=== PATIENT | female | born 1930 | race Caucasian/White ===

== ENCOUNTER 2017-08-10 10:36 | Inpatient (IN) | payer OTHER ==
[~2017-08-10] VITALS: Ht 149.9 cm; Wt 61.6 kg
[2017-08-10 10:45] VITALS: BP 151/64
--- NOTE | 2017-08-10 11:22 | NUR ---
pt was covered with warm blankets per request
[2017-08-10] MEDS ORDERED: LASIX 20 MG TAB20 MG PO (11:47)
[2017-08-10] MEDS ORDERED: NAMENDA 10 MG T10 MG PO (11:47)
[2017-08-10] MEDS ORDERED: SERTRALINE HCL50 MG PO (11:54)
[2017-08-10] MEDS ORDERED: LOPRESSOR25 PO (11:54)
[2017-08-10] MEDS ORDERED: FISH OIL 1,001000 M2 PO (11:54)
[2017-08-10] MEDS ORDERED: GABAPENTIN 100100 MG PO (11:55)
[2017-08-10] MEDS ORDERED: VITAMIN D250000 UNIT PO (11:55)
[2017-08-10 12:02] LABS: ABSOLUTE BASOPHILS 0.1 thou/uL (0.0-0.2); ABSOLUTE EOSINOPHILS 0.3 thou/uL (0.0-0.7); ABSOLUTE LYMPHOCYTES 1.5 thou/uL (0.8-5.3); ABSOLUTE MONOCYTES 0.5 thou/uL (0.0-1.2); ABSOLUTE NEUTROPHILS 5.7 thou/uL (1.6-8.1); BASOPHILS 1.2 %; EOSINOPHILS 4.1 %; HEMOGLOBIN 9.4 gm/dL (12.0-15.0); LYMPHOCYTES 18.3 %; MCH 29.7 pg (26.0-34.0); MCHC 31.2 g/dL (28.0-37.0); MCV 95.1 fL (80.0-100.0); MONOCYTES 6.4 %; MPV 7.3 fl. (7.2-11.1); NUCLEATED RBCS 0 /100WBC; PLATELET COUNT* 266 thou/uL (150-400); RBC 3.16 mil/uL (4.20-5.00); RDW-CV 17.6 % (10.5-14.5); WBC 8.2 thou/uL (4.0-11.0)
[2017-08-10 12:10] LABS: ANION GAP 9 mmol/L (7-16); BUN 33 mg/dL (7-18); CALCIUM 8.5 mg/dL (8.5-10.1); CHLORIDE 116 mmol/L (98-107); CO2 23 mmol/L (21-32); CREATININE 2.3 mg/dL (0.6-1.3); GLUCOSE 87 mg/dL (70-99); POTASSIUM 3.5 mmol/L (3.5-5.1); SODIUM 148 mmol/L (136-145)
[2017-08-10 12:21] LABS: ALBUMIN 2.4 g/dL (3.4-5.0); ALKALINE PHOSPHATASE 106 U/L (46-116); MAGNESIUM 1.9 mg/dL (1.8-2.4); NT-PRO BRAIN NAT PEPTIDE 10952 pg/mL (<300); SGOT 22 U/L (15-37); SGPT 10 U/L (30-65); TOTAL BILIRUBIN 0.3 mg/dL (<0.1-1.0); TOTAL PROTEIN 6.3 g/dL (6.4-8.2); TROPONIN-I LEVEL <0.06 ng/mL (<0.06)
[2017-08-10 12:24] LABS: BE -6.4 mmol/L (-2 to +3); HCO3 19.2 mmol/L (22.0-26.0); PCO2 38.8 mmHg (35.0-45.0); PO2 77.2 mmHg (75.0-100.0); pH 7.313 (7.340-7.450)
[2017-08-10 14:25] LABS: URINE BILIRUBIN NEGATIVE (Negative); URINE BLOOD TRACE (Negative); URINE CLARITY CLEAR; URINE COLOR YELLOW; URINE GLUCOSE-RANDOM NEGATIVE (Negative); URINE KETONES NEGATIVE (Negative); URINE LEUKOCYTES-REFLEX 1+ (Negative); URINE NITRITE-REFLEX POSITIVE (Negative); URINE PROTEIN 2+ (Negative); URINE SPECIFIC GRAVITY 1.025 (1.005-1.030); URINE UROBILINOGEN 0.2 E.U./dl (0.2-1.0)
[2017-08-10 14:30] LABS: SQUAMOUS 0-3 Few /LPF (0-3); WBC CLUMPS Few (None Seen)
[2017-08-10 14:31] LABS: BACTERIA-REFLEX 1-9 Few /HPF (None Seen); MUCUS None Seen strn/LPF (None Seen); URINE RBC 3-10 Few /HPF (0-2)
[2017-08-10 14:32] LABS: AMORPHOUS URATES Few /LPF (None Seen); HYALINE CASTS 0-3 Few /LPF (None Seen)
[2017-08-10 14:35] VITALS: BP 155/57
[2017-08-10 15:30] VITALS: BP 150/61
--- NOTE | 2017-08-10 17:35 | NUR ---
PT ARRIVED TO ROOM 218 AT 1435, ORIENTED TO ROOM AND STAFF. PT ALERT X3-4, FORGETFUL AT TIMES, SHE IS [place], HAS TROUBLE AMBLULATING, PT HAS HOME WALKER WITH HER. SHE STATES SHE JUST MOVED HERE FROM [place] WITH HER DTR AND CONOR. PT HAD A FALL LAST MONTH, BROKE HER LEFT ARM, AND WAS IN REHAB THERE. PT WAS NOT FEELING WELL THIS AM AND CAME TO THE ER. PT DENIES PAIN AT THIS TIME. VSS, A PACED ON THE MONITOR. PT IS WANTING TO TALK TO CM TOMORROW ABOUT GETTING SOME INSURANCE SET UP SINCE SHE JUST MOVED HERE AND ALSO WANTS DPOA AND ADVANCED DIRECTIVE. PTS DAUTHER AND CONOR AT BEDSIDE. FALL PRECAUTIONS IN PLACE. WILL CONTINUE WITH PLAN OF CARE.
--- NOTE | 2017-08-10 18:20 | EKG ---
[place] [address] ELECTROCARDIOGRAM REPORT Name: SPARKSETIENNE Room: [address] [place] [facility] [id number] Admission: 08/10/17 Attend Phys: Adela Parish MD Discharge: Date of : 34 Report #: [id number] THIS REPORT FOR: //name// [facility] ED Test Date: 2017-08-10 Test Time: 10:49:31 Pat Name: ETIENNE SPARKS Department: Room: Gender: Insurance Executive: Evy MCCALLUM : 1930 Requested By: Dania Alvarez Order Number: [id number] MD: Costa Alcantar Measurements Intervals [place] Rate: 60 P: 177 VA: 182 QRS: 4 QRSD: 111 T: 41 QT: 463 QTc: 463 Interpretive Statements Atrial-paced complexes No previous ECG available for comparison Electronically Signed On 08-10-2017 18:19:52 CDT by Costa Alcantar [email or web address] <ELECTRONICALLY SIGNED> By: Costa Alcantar MD, [facility] 08/10/17 1819 D: 059 1049 Costa Alcantar MD, FACC /EPI
[2017-08-10 20:15] VITALS: BP 161/54
[2017-08-11] VITALS: BP 149/46
[2017-08-11 04:00] VITALS: BP 136/45
[2017-08-11 04:31] LABS: HEMATOCRIT 25.8 % (37.0-47.0); HEMOGLOBIN 8.3 gm/dL (12.0-15.0); MCH 30.1 pg (26.0-34.0); MCHC 32.2 g/dL (28.0-37.0); MCV 93.5 fL (80.0-100.0); MPV 7.4 fl. (7.2-11.1); RBC 2.76 mil/uL (4.20-5.00); WBC 7.4 thou/uL (4.0-11.0)
[2017-08-11 04:33] LABS: CREATININE 2.1 mg/dL (0.6-1.3); MAGNESIUM 1.6 mg/dL (1.8-2.4); POTASSIUM 3.1 mmol/L (3.5-5.1)
--- NOTE | 2017-08-11 05:04 | NUR ---
ASSUMED CARE AROUND 1930. PT A/OX4 AND VERY PLEASANT. TELE MONITOR TRACING SR-PACER. ON ROOM AIR. IVF INFUSING ORDERED. VOIDING AND HAVING LOOSE BM'S VIA BEDPAN. PT REPORTED INTERMITTENT LEFT SHOULDER PAIN WITH MOVEMENT, REFUSED ANY PAIN MEDS THIS SHIFT. VSS. SEE CHARTING. CALL LIGHT IN REACH, BEDALARM IN PLACE. WILL CONTINUE WITH PLAN OF CARE.
[2017-08-11 07:45] VITALS: BP 146/72
--- NOTE | 2017-08-11 13:30 | NUR ---
Pt is A&O. Resides at home with her dtr, CONOR and granddaughter. They recently moved here from [place]. Hx of SNF in [place]. Pt uses a walker for mobility. Dtr completes ADLs. Pt is independent with IADLS. Renal and cardiology following. Pt's goal is to return home once medically stable. CM following for disposition.
--- NOTE | 2017-08-11 14:12 | 2DMMODE ---
[place] [address] 2 D/M-MODE ECHOCARDIOGRAM Name: ETIENNE SPARKS Room: [address] IN [facility]#: [id number] Admission: 08/10/17 Attend Phys: Adela Parish, Discharge: Date of : 32 Date of Service: 08/11/17 1411 Report #: [id number] THIS REPORT FOR: //name// APPROVED REPORT Study performed: 08/11/2017 10:52:47 EXAM: Comprehensive 2D, Doppler, and color-flow Echocardiogram Patient Location: In-Patient Room #: 218 Status: routine BSA: 1.65 HR: 60 bpm BP: 146/72 mmHg Rhythm: NSR Other Information Study Quality: Good Indications Congestive Heart Failure 2D Dimensions LVEF(%): 55.07 (>50%) IVSd: 13.00 (7-11mm) LVOT Diam: 18.20 (18-24mm) LVDd: 25.64 mm PWd: 11.15 (7-11mm) Ascending Ao: 32.08 (22-36mm) LVDs: 18.67 (25-40mm) Aortic Root: 29.55 mm Vincent's LVEF: 55.07 % Volumes Left Atrial Volume (Systole) LA ESV Index: 49.40 mL/m2 Aortic Valve AoV Peak Ronal.: 1.41 m/s AO Peak Gr.: 7.90 mmHg LVOT Max P.89 mmHg AO Mean Gr.: 4.55 mmHg LVOT Mean P.85 mmHg LVOT Max V: 0.99 m/s AO V2 VTI: 30.11 cm LVOT Mean V: 0.62 m/s EARL (VTI): 2.31 cm2 LVOT V1 VTI: 26.78 cm Mitral Valve E/A Ratio: 1.94 [place] [address] 2 D/M-MODE ECHOCARDIOGRAM Name: ETIENNE SPARKS Room: [address] IN ..#: [id number] Admission: 08/10/17 Attend Phys: Adela Parish, Discharge: Date of : 32 Date of Service: 08/11/17 1411 Report #: [id number] MV Decel. Time: 229.99 ms MV E Max Ronal.: 0.83 m/s MV PHT: 66.70 ms MVA (PHT): 3.30 cm2 TDI E/Lateral E': 8.30 E/Medial E': 9.22 Medial E' Ronal.: 0.09 m/s Lateral E' Ronal.: 0.10 m/s Pulmonary Valve PV Peak Ronal.: 0.83 m/s PV Peak Gr.: 2.74 mmHg Tricuspid Valve TR Peak Gr.: 36.36 mmHg RVSP: 41.00 mmHg Left Ventricle The left ventricle is normal size. There is normal LV segmental wall motion. There is normal left ventricular wall thickness. Left ventricular systolic function is normal. The left ventricular ejection fraction is within the normal range. LVEF is 60-65%. The left ventricular diastolic function is normal. Right Ventricle The right ventricle is normal size. The right ventricular systolic function is normal. Pacemaker lead is present in the right ventricle. Atria Left atrium is severely dilated. The right atrium size is normal. Aortic Valve Mild aortic valve sclerosis. No aortic regurgitation is present. There is no aortic valvular stenosis. Mitral Valve The mitral valve is normal in structure. Mild mitral regurgitation. No evidence of mitral valve stenosis. Tricuspid Valve The tricuspid valve is normal in structure. Mild tricuspid regurgitation. The RVSP is 45-50 mmHg. Pulmonic Valve The pulmonary valve is normal in structure. [place] [address] 2 D/M-MODE ECHOCARDIOGRAM Name: CYNDEE SPARKSHELEN Caromna Room: [address] IN .R.#: [id number] Admission: 08/10/17 Attend Phys: Adela Parish, Discharge: Date of : 32 Date of Service: 08/11/17 1411 Report #: [id number] Great Vessels The aortic root is normal in size. IVC is normal in size and collapses with >50% inspiration Pericardium There is no pericardial effusion. Left pleural effusion. <Conclusion> LVEF is 60-65%. Left atrium is severely dilated. Mild aortic valve sclerosis. Mild mitral regurgitation. Mild tricuspid regurgitation. The RVSP is 45-50 mmHg. <ELECTRONICALLY SIGNED> By: Costa Alcantar MD, [facility] 08/11/17 141 10 10 Costa Alcantar MD, FACC /INF
[2017-08-11 16:21] VITALS: BP 157/51
[2017-08-11 20:00] VITALS: BP 146/56
[2017-08-12] VITALS: BP 133/68
[2017-08-12 04:00] VITALS: BP 141/54
[2017-08-12 04:51] LABS: HEMATOCRIT 25.3 % (37.0-47.0); MCH 29.8 pg (26.0-34.0); MCHC 31.8 g/dL (28.0-37.0); MCV 93.8 fL (80.0-100.0); MPV 7.7 fl. (7.2-11.1); RBC 2.69 mil/uL (4.20-5.00); RDW-CV 18.6 % (10.5-14.5); WBC 7.6 thou/uL (4.0-11.0)
[2017-08-12 05:13] LABS: CREATININE 2.2 mg/dL (0.6-1.3); MAGNESIUM 1.7 mg/dL (1.8-2.4); POTASSIUM 3.9 mmol/L (3.5-5.1)
--- NOTE | 2017-08-12 05:56 | NUR ---
ASSUMED PT CARE AT 19;15 REPORT RECEIVED FROM NURSE. PT IS ALERT AWWAKE ORIENTED X4. NO COMPLAINT AT [facility]. SINUS RYTHM V PACED PN THE MONITOR. RECEIVING ANTIBIOTICS ON SCHEDULE. ASSSEESSMENT PERFORMED. PT HELPED TO GO TO RESTROOM CHRISTINE BED WITH ASSISTANCE. IV LINE IS PATENT, ASSESSMETN PERFORMED. PT TOLORATED WELL. REFER TO CHART. LIGHT DIMMED, ROOM QUIET TO PROMOTE SLEEP. WILL CONTINUE TO MOMITOR.
[2017-08-12 08:30] VITALS: BP 139/39
--- NOTE | 2017-08-12 10:57 | NUR ---
ASSUMED CARE OF PATIENT AFTER REPORT THIS MORNING. PATIENT AWAKE, ALERT, AND ORIENTED APPROPRIATELY. PHYSICAL ASSESSMENT COMPLETED AND CHARTED. NO COMPLAINTS OF PAIN. HYPOTENSIVE. OTHER VITAL SIGNS STABLE. OXYGEN SATURATION WITHIN NORMAL LIMITS ON ROOM AIR. GIVEN SCHEDULED MEDICATIONS, HELD METOPROLOL D/T HYPOTENSION, SEE EMAR FOR DOCUMENTATION. PATIENT TRANSFERS AND AMBULATES WITH ASSISTANCE FROM STAFF. USES CALL LIGHT APPROPRIATELY. DENIES NEEDS AT THIS TIME. CALL LIGHT WITHIN REACH. NURSING WILL CONTINUE TO MONITOR.
[2017-08-12 11:48] VITALS: BP 146/71
--- NOTE | 2017-08-12 13:45 | NUR ---
Spoke with Pt's dtr, Pt currently has [employer] and wants to switch to [place] Medicaid. Faxed facesheet to Radha at [facility]. Completed DPOA of , appointing Pt's dtr, Rosibel, and Davi PERDOMO.
[2017-08-12 16:10] VITALS: BP 167/61
--- NOTE | 2017-08-12 17:28 | NUR ---
PATIENT REMAINS ALERT AND ORIENTED APPROPRIATELY, FORGETFUL AT TIMES. IV FLUIDS TRANSFUSING AT ORDERED RATE. GIVEN SCHEDULED MEDICATIONS THIS SHIFT, SEE EMAR FOR DOCUMENTATION. DENIES NEEDS. CALL LIGHT IN REACH. NURSING WILL CONTINUE TO MONITOR.
[2017-08-12 20:00] VITALS: BP 142/48
[2017-08-13 00:11] VITALS: BP 132/35
--- NOTE | 2017-08-13 04:06 | NUR ---
ASSUMED CARE OF PT AT 1915. NURSING ASSESSMENT COMPLETED AT START OF SHIFT. PT VOICED NO CONCERNS THIS SHIFT. PT ON IRRIGATION SERVICE TECHNICIAN TRACING SINUS RHYTHM THIS SHIFT WITH HR IN 60'S. FALL PRECAUTIONS IN PLACE, CALL LIGHT WITHIN REACH. NO FALLS THIS SHIFT. HOURLY ROUNDING COMPLETED. PT SLOWLY PROGRESSING TOWARDS GOALS.
[2017-08-13 04:14] VITALS: BP 124/38
[2017-08-13 08:00] VITALS: BP 145/51
[2017-08-13 12:00] VITALS: BP 151/59
--- NOTE | 2017-08-13 13:28 | NUR ---
VSS, ASSUMED CARE IN THE AM, ASSESSMENT PERFORMED AND CHARTED, FALL PRECAUTIONS IN PLACE AND CALL LIGHT IN REACH, PT IS A&O4 UP WITH ONE AND WALKER, PT IS ON RA AND IS TRCAING SR ON THE MONITOR, PT DENIES ANY PAIN AND HER GOAL IS TO SIT UP IN CHAIR AND WORK WITH PT/OT, WILL FOLLOW WITH PLAN OF CARE,
[2017-08-13 14:07] LABS: IgA 232 mg/dL (64-422); IgG 880 mg/dL (700-1600); IgM 120 mg/dL (26-217)
[2017-08-13 16:00] VITALS: BP 136/53
--- NOTE | 2017-08-13 18:26 | NUR ---
PT IS PROGRESSING TOWARDS GOAL, PT WALKED THE UNIT AND HAS BEEN UP IN CHAIR FOR ALL MEALS, HER BREATHING HAS IMPROVED AND AT THIS TIME NO OTHER STATUS CHANGED NOTED AT THIS TIME, HOURLY ROUNDS COMPLETED, PT HAS PACEMAKER AND IS A PACED AT TIMES,
[2017-08-13 20:00] VITALS: BP 180/57
[2017-08-14 00:15] VITALS: BP 164/52
[2017-08-14 04:06] VITALS: BP 139/41
--- NOTE | 2017-08-14 04:36 | NUR ---
ASSUMED PT CARE AT 1930, NURSING ASSESSMENT COMPLETED AT START OF SHIFT. HOURLY ROUNDING COMPLETED, VOICED NO CONCERNS THIS SHIFT. PT TRACING ATRIAL PACED ON WORKFORCE ADVISOR WITH HR OF 60. CALL LIGHT WITHIN REACH. FALL PRECAUTIONS IN PLACE.
[2017-08-14 05:17] LABS: HEMATOCRIT 26.3 % (37.0-47.0); HEMOGLOBIN 8.3 gm/dL (12.0-15.0)
[2017-08-14 05:38] LABS: ALBUMIN 1.9 g/dL (3.4-5.0); CALCIUM 8.1 mg/dL (8.5-10.1); CREATININE 2.1 mg/dL (0.6-1.3); POTASSIUM 3.5 mmol/L (3.5-5.1); TOTAL BILIRUBIN 0.3 mg/dL (<0.1-1.0); TOTAL PROTEIN 4.9 g/dL (6.4-8.2)
[2017-08-14 07:00] VITALS: BP 145/41
[2017-08-14 09:47] VITALS: BP 145/41
[2017-08-14] MEDS ORDERED: KEFLEX500 M1 PO (11:26)
--- NOTE | 2017-08-14 13:22 | NUR ---
VSS, ASSUMED CARE IN THE AM, ASSESSMENT PERFORMED AND CHARTED, FALL PRECAUTIONS IN PLACE AND CALL LIGHT IN REACH, PT IS UP WITH ONE AND WALKER, ON RA IS A&O4 AND TRACING A-PACED OR SR ON THE MONITOR, PT WILL D/C TO HOME ON DAY OF CARE. AT THIS TIME I HAVE RECIEVED D/C INSTRUCTIONS FILLED OUT MEDICATION SHEET AND PROVITED MEDICATION INFO SHEET AND SCRIPTED, PROVITED D/C INSTRUCTIONS IV AND TELE MONITOR TAKEN OFF AND PT WAS TAKEN OUT VIA WHEEL CHAIR WITH FAMILY TO CAR BY STAFF, HOURLY ROUNDS COMPLETED AND PT DENIES ANY QUESTIONS OR CONCERNS ATIME OF D/C
[2017-08-15 12:09] LABS: KAPPA FREE LIGHT CHAINS 81.2 mg/L (3.3-19.4); LAMBDA FREE LIGHT CHAINS 84.4 mg/L (5.7-26.3)
--- NOTE | 2017-08-17 12:21 | CON ---
[address] [address] CONSULTATION Name: ETIENNE SPARKS Mathew Room: [address] IN ..#: [id number] Admission: 08/10/17 Attend Phys: Adela Parish MD Discharge: 08/14/17 Date of : 32 Report #: [id number] THIS REPORT FOR: //name// CC: TEODORO Parish Physician staff DATE OF SERVICE: 08/11/2017 REQUESTING PHYSICIAN: Dr. Parish. REASON FOR CONSULTATION: Chronic kidney disease stage 4. HISTORY OF PRESENT ILLNESS: The patient is an 86-year-old lady with past medical history significant for liver cirrhosis, history of congestive heart failure, chronic kidney disease, stage IV. She was admitted with a diagnosis of not feeling well, having some shortness of breath and admitting diagnosis were pneumonia, CHF. The patient's family moved here from [place] several days ago. PAST MEDICAL HISTORY: As mentioned earlier with a baseline of creatinine around 2.1-2.2 with a GFR in the 20s. I do not have records on her left ventricular ejection fraction. 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 SOCIAL HISTORY: She never smoked. Lives with family. FAMILY HISTORY: Noncontributory. MEDICATIONS: Prior to admission included furosemide 20 mg a day, Namenda 10 mg a day, fish oil, Zoloft, Lopressor 25 mg twice a day, gabapentin 100 mg 3 times a day and vitamin D. REVIEW OF SYSTEMS: Positive for weakness as I mentioned earlier and some shortness of breath. The rest of the system reviewed are negative. PHYSICAL EXAMINATION: GENERAL: Awake, alert, oriented, chronically ill-looking lady. VITAL SIGNS: Blood pressure 146/72, heart rate 60, afebrile. HEENT: Pupils are round. NECK: Supple. LUNGS: Decreased air movements both bases, more on the left. CARDIOVASCULAR: Regular rate. ABDOMEN: Soft. Liver is palpable about 6 cm below the right costal margin. LOWER EXTREMITIES: [place] [address] CONSULTATION Name: ETIENNE SPARKS Mathew Room: [address]#: [id number] Admission: 08/10/17 Attend Phys: Adela Parish MD Discharge: 08/14/17 Date of : 32 Report #: [id number] LABORATORY DATA: Report revealed serum sodium of 150, potassium 3.1, chloride 119, carbon dioxide 21, BUN 29, creatinine 2.1, magnesium 1.6. Hemoglobin is 8.3, white count 7.4. Her chest CT scan revealed the presence of left moderate amount of pleural effusion and some pleural effusion on the right as well, and left kidney mass, most likely cyst, small right kidney stone and lobulated liver consistent with diagnosis of cirrhosis. ASSESSMENT: 1. Chronic kidney disease stage 4. I have reviewed her labs from [place] and a creatinine around 2.2 is her baseline. Etiology of chronic kidney disease, unclear, probably due to hypertension. 2. 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 3. History of recent pneumonia. 4. History of congestive heart failure with pleural effusion. 5. Hypernatremia. 6. Hyperkalemia. The patient is going to have renal ultrasound done today. She is receiving antibiotics for diagnosis of pneumonia. Cardiology is on the case to take care of congestive heart failure. I will await reports on the echocardiogram. We will follow on her serial labs. Discussed case with her daughter. Thank you very much for asking my opinion on chronic kidney disease. <ELECTRONICALLY SIGNED> By: Abraham Gudino MD 08/17/17 1221 1014 [id number] Gudino MD /nt
== END 2017-08-14 13:33 | disposition home or self-care (01) | DRG 177 ==
LOC: M.ERS 10:36 → M.TBA-ER 14:07 → M.2W 14:07
PROVIDERS: Internal Medicine; Internal Medicine Cardiovascular Disease; Internal Medicine Nephrology; Personal Emergency Response Attendant; ADMIT Internal Medicine
DX: J69.0 Pneumonitis due to inhalation of food and vomit (principal); I50.33 Acute on chronic diastolic (congestive) heart failure; E43 Unspecified severe protein-calorie malnutrition; N17.9 Acute kidney failure, unspecified; I13.0 Hypertensive heart and chronic kidney disease with heart failure and stage 1 through stage 4 chronic kidney disease, or unspecified chronic kidney disease; E87.0 Hyperosmolality and hypernatremia; N39.0 Urinary tract infection, site not specified; N18.4 Chronic kidney disease, stage 4 (severe); K74.60 Unspecified cirrhosis of liver; E87.5 Hyperkalemia; Y95 Nosocomial condition; E87.6 Hypokalemia; M81.0 Age-related osteoporosis without current pathological fracture; F32.9 Major depressive disorder, single episode, unspecified; B96.89 Other specified bacterial agents as the cause of diseases classified elsewhere; H35.30 Unspecified macular degeneration; I49.5 Sick sinus syndrome; D64.9 Anemia, unspecified; Z96.641 Presence of right artificial hip joint; H91.90 Unspecified hearing loss, unspecified ear; E21.3 Hyperparathyroidism, unspecified; Z95.0 Presence of cardiac pacemaker; Z98.84 Bariatric surgery status; Z87.81 Personal history of (healed) traumatic fracture; Z86.718 Personal history of other venous thrombosis and embolism; Z79.899 Other long term (current) drug therapy; Z88.6 Allergy status to analgesic agent; Z91.041 Radiographic dye allergy status; Z91.013 Allergy to seafood; Z88.8 Allergy status to other drugs, medicaments and biological substances; Z91.018 Allergy to other foods; Z91.048 Other nonmedicinal substance allergy status

== ENCOUNTER 2017-08-16 10:40 | Inpatient (IN) | payer OTHER ==
[~2017-08-16] VITALS: Ht 149.9 cm; Wt 80.7 kg
--- NOTE | ~2017-08-16 | PROC ---
[address] [address] PROCEDURE REPORT Name: ETIENNE SPARKS Room: [address] IN .R.#: [id number] Admission: 08/16/17 Attend Phys: Bassam Noe MD Discharge: Date of : 32 Report #: [id number] THIS REPORT FOR: //name// For GI report, Please see the Provation report in Perceptive 7 content. By: [id number] Records Staff BELL /ROSEMARIE
[~2017-08-16 10:40] MED LIST: FISH OIL 1,001000 M2 PO; GABAPENTIN 100100 MG PO; KEFLEX500 M1 PO; LASIX 20 MG TAB20 MG PO; LOPRESSOR25 PO; NAMENDA 10 MG T10 MG PO; SERTRALINE HCL50 MG PO; VITAMIN D250000 UNIT PO
[2017-08-16 10:48] VITALS: BP 177/75
[2017-08-16 11:34] LABS: HEMATOCRIT 30.8 % (37.0-47.0); HEMOGLOBIN 9.6 gm/dL (12.0-15.0); MCH 29.7 pg (26.0-34.0); MCHC 31.3 g/dL (28.0-37.0); MCV 94.9 fL (80.0-100.0); MPV 7.7 fl. (7.2-11.1); NUCLEATED RBCS 0 /100WBC; PLATELET COUNT* 170 thou/uL (150-400); RBC 3.24 mil/uL (4.20-5.00); RDW-CV 18.7 % (10.5-14.5); WBC 12.5 thou/uL (4.0-11.0)
[2017-08-16 11:41] LABS: ANION GAP 10 mmol/L (7-16); BUN 19 mg/dL (7-18); CALCIUM 9.1 mg/dL (8.5-10.1); CHLORIDE 116 mmol/L (98-107); CO2 21 mmol/L (21-32); CREATININE 1.9 mg/dL (0.6-1.3); GLUCOSE 100 mg/dL (70-99); POTASSIUM 3.6 mmol/L (3.5-5.1); SODIUM 147 mmol/L (136-145)
[2017-08-16 11:52] LABS: ALBUMIN 2.4 g/dL (3.4-5.0); ALKALINE PHOSPHATASE 96 U/L (46-116); MAGNESIUM 1.9 mg/dL (1.8-2.4); NT-PRO BRAIN NAT PEPTIDE 10150 pg/mL (<300); SGOT 17 U/L (15-37); SGPT 9 U/L (30-65); TOTAL BILIRUBIN 0.4 mg/dL (<0.1-1.0); TOTAL PROTEIN 6.1 g/dL (6.4-8.2); TROPONIN-I LEVEL <0.06 ng/mL (<0.06)
[2017-08-16 12:20] LABS: ABSOLUTE LYMPHOCYTES 0.6 thou/uL (0.8-5.3); ABSOLUTE MONOCYTES 0.4 thou/uL (0.0-1.2); ABSOLUTE NEUTROPHILS 11.5 thou/uL (1.6-8.1)
[2017-08-16 12:21] LABS: ANISOCYTOSIS 1+; HYPOCHROMASIA Occasional; MICROCYTES Occasional; PLATELET ESTIMATE ADEQUATE; POLYCHROMASIA Occasional
[2017-08-16 12:32] LABS: HCO3 18.1 mmol/L (22.0-26.0); PCO2 43.9 mmHg (35.0-45.0); PO2 147.4 mmHg (75.0-100.0); pH 7.233 (7.340-7.450)
[2017-08-16 13:22] VITALS: BP 155/74
[2017-08-16 13:40] VITALS: BP 179/62
[2017-08-16 14:18] LABS: INR 1.2; PROTIME 11.4 Seconds (9.20-11.50)
[2017-08-16 16:30] VITALS: BP 148/49
[2017-08-16 16:44] LABS: BF RBC <1000 /mm3; TOTAL CELL COUNT 131 /mm3
[2017-08-16 16:48] LABS: TOTAL VOLUME 1200 ml
[2017-08-16 16:49] LABS: CLARITY CLEAR; COLOR YELLOW
[2017-08-16 16:56] LABS: BF LYMPHOCYTES 67 %; BF MONOCYTES 20 %; BF POLYS 13 %; SOURCE THORACENTESIS
--- NOTE | 2017-08-16 17:17 | EKG ---
[place] [address] ELECTROCARDIOGRAM REPORT Name: SPARKSETIENNE Room: [address] IN [facility]#: [id number] Admission: 08/16/17 Attend Phys: Bassam Noe MD Discharge: Date of : 32 Report #: [id number] THIS REPORT FOR: //name// [facility] ED Test Date: 2017-08-16 Test Time: 11:51:22 Pat Name: ETIENNE PSARKS Department: Room: Gender: Alteration Specialist: Evy WILLIAMSON : 1930 Requested By: Dania Alvarez Order Number: [id number] MD: Costa Alcantar Measurements Intervals Early Rate: 72 P: 6 CO: 52 QRS: 7 QRSD: 100 T: 45 QT: 411 QTc: 450 Interpretive Statements Atrial-paced complexes with sinus rhythm Low voltage, extremity and precordial leads Compared to ECG 08/10/2017 10:49:31 Low QRS voltage now present Electronically Signed On 08-16-2017 17:16:57 CDT by Costa Alcantar [email or web address] <ELECTRONICALLY SIGNED> By: Costa Alcantar MD, [facility] 08/16/17 1716 1151 1151 Costa Alcantar MD, [facility] /EPI
--- NOTE | 2017-08-16 18:35 | NUR ---
PT ADMITTED TO ROOM 214 VIA CART FROM ED AT APPROXIMATELY 1340 WITH CHF. REPORT RECEIVED FROM NINO RESTREPO. PT ORIENTED TO ROOM AND CALL LIGHT. ADMISSION ASSESSMENT AND HISTORY COMPLETED. REFER TO CHARTING. SEPSIS SCREENING COMPLETED- PT SCREENED NEGATIVE. HOME MEDICATIONS RECONCILED AND RESTARTED-REFER TO EMAR. PT A&0X4 AT BEGINNING OF SHIFT. PT BEGAN TO GET CONFUSED THROUGHOUT SHIFT AND FORGETFUL. DAUGHTER AT BEDSIDE. PT TRACING A-PACED ON THE FISH CONSERVATIONIST. PT ON 2L NC SAT UPPER 90'S. CRACKLES NOTED. PT DOES NOT WEAR OXYEN AT HOME. PT LIVES AT HOME WITH DAUGHTER-DAUGHTER CARES FOR PT 18/10. PT UP WITH 1 ASSIST BSC, UNSTEADY AND WEAK. PT HAD BOWEL MOVEMENT TODAY. URINALYSIS NEEDS TO BE OBTAINED. AWAITING RESULTS AT THIS TIME. PT HAD RECENT LEFT SHOULDER FRACTURE AND WAS GETTING READY TO START PHYSICAL THERAPY ON IT. BNP ELEVATED AT 10,150. EDEMA NOTED TO BILATERAL LE'S. 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 PT DENIES ANY PAIN AT THIS TIME. PULMONARY CONSULT IN PLACE FOR RECURRENT INFILTRATES. PT HAD VQ LUNG SCAN TODAY SHOWING LOW PROBABILITY FOR PE. - REFER TO RESULTS. 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 DR PEREZ NOTIFIED. NO NEW ORDERS RECEIVED AT THIS TIME. PT HAD THORACENTESIS TO LEFT LUNG TODAY. FLUID OBTAINED AND SENT FOR ANALYSIS. WILL CONTINUE TO MONITOR CLOSELY. MEDICATIONS PER MAY. PT REPOSITIONED EVERY 2 HOURS FOR COMFORT. HOURLY ROUNDING OBSERVED. BED IN LOW POSITION. BED ALARM IN PLACE. FALL PRECAUTIONS IN PLACE. CALL LIGHT WITHIN REACH. WILL CONTINUE PLAN OF CARE.
[2017-08-16 20:00] VITALS: BP 170/59
[2017-08-16 23:52] VITALS: BP 145/54
[2017-08-17 03:58] VITALS: BP 113/24
--- NOTE | 2017-08-17 04:23 | NUR ---
PT ALERT ORIENTED. BREATH SOUNDS DIM COURSE. O2 AT 2 LITERS NC. TELEMETRY SHOWS SR WITH INTERMITTENT A PACED. WILL CONTINUE TO MONITOR.
[2017-08-17 04:56] LABS: ABSOLUTE BASOPHILS 0.1 thou/uL (0.0-0.2); ABSOLUTE LYMPHOCYTES 1.3 thou/uL (0.8-5.3); ABSOLUTE MONOCYTES 0.6 thou/uL (0.0-1.2); ABSOLUTE NEUTROPHILS 13.2 thou/uL (1.6-8.1); BASOPHILS 0.5 %; EOSINOPHILS 0.2 %; HEMATOCRIT 29.8 % (37.0-47.0); LYMPHOCYTES 8.8 %; MCH 29.4 pg (26.0-34.0); MCHC 30.3 g/dL (28.0-37.0); MCV 97.2 fL (80.0-100.0); MPV 7.8 fl. (7.2-11.1); NUCLEATED RBCS 0 /100WBC; PLATELET COUNT* 141 thou/uL (150-400); POLYS 86.5 %; RBC 3.07 mil/uL (4.20-5.00); RDW-CV 19.8 % (10.5-14.5); WBC 15.3 thou/uL (4.0-11.0)
[2017-08-17 05:21] LABS: CALCIUM 8.3 mg/dL (8.5-10.1); CREATININE 2.1 mg/dL (0.6-1.3); POTASSIUM 3.7 mmol/L (3.5-5.1)
[2017-08-17 08:00] VITALS: BP 117/41
[2017-08-17 12:24] VITALS: BP 138/50
--- NOTE | 2017-08-17 12:32 | NUR ---
Pt known to this CM from hospital stay last week. Pt resides at home with her dtr and CONOR, family recently moved here from [place]. Pt discharged on 08/14 to home, Pt readmitted yesterday with [facility] CHF. Hx of Snf in [place]. No hx of HH. Pt has a walker, wc and hospital bed at home. Dtr completes all ADLs. Pt had been independent with iadls. Pt could benefit from some HH [place], family in agreement. Goal is home. Following.
[2017-08-17 14:09] LABS: BODY FLUID AMYLASE 35 U/L (()); BODY FLUID LDH 49 IU/L (()); BODY FLUID PROTEIN 1.2 g/dL (())
--- NOTE | 2017-08-17 14:33 | NUR ---
ASSUMED CARE OF PT AT 0730. PT RESTING IN BED. PT A&0X4, FORGETFUL AT TIMES. PT TRACING APACED ON THE ORGAN PIPE FINISHER. ON 3L NC SAT 98%. COARSE CRACKLES NOTED. BLOOD CULTURE RESULTS BACK WITH GRAM POSITIVE COCCI. DR PREEZ NOTIFIED. ORDERS RECEIVED FOR ID CONSULT AND TO START VANCOMYCIN. REFER TO EMAR. PT IN CONTACT ISOLATION FOR ESBL IN URINE. MRSA NASAL SWAB SENT TO LAB. AWAITING RESULTS AT THIS TIME. PT UP WITH 1 ASSIST TO BSC. PT TO WORK WITH PHYSICAL AND OCCUPATIONAL THERAPY TODAY. PT NPO EXCEPT MEDS UNTIL RECEIVES SWALLOW STUDY. PULMONARY HERE TO SEE PT AND ORDERS RECEIVED FOR IV SOLUMEDROL AND CT CHEST. REFER TO EMAR. DAUGHTER, MAMIE CALLED AND UPDATED WITH CURRENT CARE PLAN. PT GOAL FOR TODAY IS TO MONITOR RESPIRATORY STATUS AND NEPHROLOGY CONSULT. AM ASSESSMENT CHARTED. MEDICATIONS PER MAY. PT REPOSITIONED EVERY 2 HOURS FOR COMFORT. HOURLY ROUNDING OBSERVED. BED IN LOW POSITION. BED ALARM IN PLACE. FALL PRECAUTIONS IN PLACE. CALL LIGHT WITHIN REACH. WILL CONTINUE PLAN OF CARE.
[2017-08-17 15:16] LABS: SOURCE THORACENTESIS
[2017-08-17 15:17] LABS: SOURCE THORACENTESIS
[2017-08-17 15:52] VITALS: BP 121/58
[2017-08-17 17:09] LABS: BODY FLUID PH 7.6 (Not Estab.)
--- NOTE | 2017-08-17 17:56 | 2DMMODE ---
[address] [place] [address] 2 D/M-MODE ECHOCARDIOGRAM Name: ETIENNE SPARKS Mathew Room: [address] IN [facility]#: [id number] Admission: 08/16/17 Attend Phys: Bassam Noe, Discharge: Date of : 34 Date of Service: 08/17/17 1756 Report #: [id number] THIS REPORT FOR: //name// APPROVED REPORT Study performed: 08/17/2017 15:41:37 EXAM: Limited 2D Echocardiogram Patient Location: In-Patient Room #: 214 Status: routine BSA: 1.58 HR: 60 bpm BP: 138/50 mmHg Rhythm: NSR Other Information Study Quality: Good Indications Congestive Heart Failure Sepsis Dyspnea Pacemaker Left Ventricle The left ventricle is normal size. There is normal LV segmental wall motion. There is normal left ventricular wall thickness. The left ventricular systolic function is normal. The left ventricular ejection fraction is within the normal range. LVEF is 55-60%. Right Ventricle The right ventricle is normal size. The right ventricular systolic function is normal. Atria Left atrium is moderate to severely dilated. Aortic Valve Mild aortic valve sclerosis. Mitral Valve Mild mitral annular calcification. Tricuspid Valve The tricuspid valve is normal in structure. [facility] [address] [place] [address] 2 D/M-MODE ECHOCARDIOGRAM Name: ETIENNE SPARKS Room: [address] IN M.R.#: [id number] Admission: 08/16/17 Attend Phys: Bassam Noe, Discharge: Date of : 32 Date of Service: 08/17/171755 Report #: [id number] Pulmonic Valve The pulmonary valve is normal in structure. Great Vessels The aortic root is normal in size. IVC is normal in size and collapses >50% with inspiration. Pericardium Left pleural effusion with mass effect suggested <Conclusion> Normal left ventricular cavitary size There is normal left ventricular wall thickness. The left ventricular systolic function is normal. The left ventricular ejection fraction is within the normal range. LVEF is 55-60%. The right ventricle is normal size. Left atrium is moderate to severely dilated. Mild aortic valve sclerosis. Mild mitral annular calcification. There is normal LV segmental wall motion. Left pleural effusion with mass effect suggested <ELECTRONICALLY SIGNED> By: Tyler Smith MD, FACC 08/17/171755 55 55 Tyler Smith MD, FACC /INF
--- NOTE | 2017-08-17 18:02 | NUR ---
NO ACUTE CHANGES THROUGHOUT SHIFT. REFER TO CHARTING. SPUTUM CULTURE OBTAINED AND SENT TO LAB. AWAITING RESULTS AT THIS TIME. MRSA SWAB PENDING WELL. SPEECH THERAPY COMPLETED A BEDSIDE EVALUATION AND PLACED PT ON PUREED DIET WITH HONEY THICKENED LIQUIDS. PT TO HAVE VIDEO SWALLOW COMPLETED TOMORROW 08/18. URINALYSIS NEEDS TO BE OBTAINED. CT CHEST ORDERED PER PULMONARY. REFER TO RESULTS. ORDERS RECEIVED FROM DR FAY FOR THORACENTESIS ON THE RIGHT SIDE WITH CYTOLOGY ORDERS. PT TO HAVE THORACENTESIS TOMORROW 08/18. PT WORKED WITH PHYSICAL AND OCCUPATIONAL THERAPY TODAY. TOLERATED FAIR. PT CONTINUES TO TRACE A PACED ON THE PROGRAMMER ENGINEERING AND SCIENTIFIC. CONTINUES TO BE ON 2L NC SAT 98%. PT DENIES ANY PAIN OR SHORTNESS OF BREATH. COARSE CRACKLES NOTED. AWAITING NEPHROLOGY INPUT. PT IN CONTACT ISOLATION FOR ESBL IN URINE. MEDICATIONS PER MAY. PT REPOSITIONED EVERY 2 HOURS FOR COMFORT. HOURLY ROUNDING OBSERVED. BED IN LOW POSITION. BED ALARM IN PLACE. FALL PRECAUTIONS IN PLACE. CALL LIGHT WITHIN REACH. WILL CONTINUE PLAN OF CARE.
[2017-08-17 20:00] VITALS: BP 100/43
[2017-08-18 01:36] VITALS: BP 127/52
[2017-08-18 03:58] VITALS: BP 109/48
[2017-08-18 05:02] LABS: ABSOLUTE LYMPHOCYTES 0.6 thou/uL (0.8-5.3); ABSOLUTE MONOCYTES 0.1 thou/uL (0.0-1.2); BASOPHILS 0.1 %; MONOCYTES 0.8 %; MPV 8.2 fl. (7.2-11.1); RBC 2.72 mil/uL (4.20-5.00)
--- NOTE | 2017-08-18 05:04 | NUR ---
ASSUMED PT CARE AT 1930, PT IS A&OX4, PT IS TRACING APACED ON THE MONITOR, ON 2L NC SATTING MID TO HIGH 90'S. PT IS UP WITH ONE. PT WILL HAVE A THORA TODAY ON HER RIGHT SIDE. PT DENIES ANY PAIN OR NEEDS THIS SHIFT. BED IN LOW POSITION, CALL LIGHT IN REACH, BED ALARM ON, YELLOW ARM BAND AND SOCKS IN PLACE.
[2017-08-18 05:06] LABS: ABSOLUTE NEUTROPHILS 6.3 thou/uL (1.6-8.1); HEMOGLOBIN 8.1 gm/dL (12.0-15.0); LYMPHOCYTES 8.2 %; MCH 29.9 pg (26.0-34.0); MCHC 31.3 g/dL (28.0-37.0); MCV 95.6 fL (80.0-100.0); NUCLEATED RBCS 0 /100WBC; PLATELET COUNT* 111 thou/uL (150-400); POLYS 90.9 %; RDW-CV 19.4 % (10.5-14.5); WBC 6.9 thou/uL (4.0-11.0)
[2017-08-18 05:40] LABS: CALCIUM 8.3 mg/dL (8.5-10.1); CREATININE 2.4 mg/dL (0.6-1.3); MAGNESIUM 1.8 mg/dL (1.8-2.4); POTASSIUM 3.4 mmol/L (3.5-5.1); TOTAL BILIRUBIN 0.2 mg/dL (<0.1-1.0); TOTAL PROTEIN 5.2 g/dL (6.4-8.2)
--- NOTE | 2017-08-18 07:44 | CON ---
[address] [address] CONSULTATION Name: SPARKSMICRONESIA L Room: [address] IN M.R.#: [id number] Admission: 08/16/17 Attend Phys: Bassam Noe MD Discharge: Date of : 32 Report #: [id number] THIS REPORT FOR: //name// CC: Bassam [facility] Physician staff DATE OF SERVICE: 08/17/2017 CONSULT REQUESTED BY: Dr. Noe. INDICATION FOR CONSULTATION: Pulmonary infiltrates/pneumonia. HISTORY OF PRESENT ILLNESS: An 86-year-old female. The patient at this time is able to provide only a limited history. She is reported to have a history of chronic renal failure. The patient's creatinine recently has been running in the range of around 1.9, which may be her baseline; however, I do not have a baseline previous creatinine available. 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 The patient is aware that at some point in the past, she has had a DVT. The patient is not on long-term anticoagulation. The patient was recently admitted to this hospital and was treated for pneumonia with Zosyn, in fact, she was just discharged 2 days ago. The patient's CT chest performed during the last hospitalization does show significant fluid overload with significant pleural effusions secondary to fluid overload. The patient reports that since discharge, she has been doing poorly. She has been feeling more weak, has been unable to walk around, also has had increase in shortness of breath. She says that she is coughing and she is coughing up yellow sputum. The patient specifically states that whenever she eats or drinks anything, this makes her cough. She does have swelling of lower extremities as well. The patient therefore was brought to this hospital. Upon arrival, she is noted to have significant metabolic acidosis with a pH decreased to 7.233. She also was noted to have pleural effusions bilaterally, more on the left side and she did undergo thoracentesis yesterday. The amount of fluid removed is not documented in the records. Verbally, I was told that this may be around 1200 mL. From the presentation, this pleural effusion appears to be a transudate; however, I do not have analysis on the fluid available at this time. The patient's respiratory status, in fact, has worsened since her having had the thoracentesis. She has not had increase in oxygen needs and is continuing to saturate well around 98% on 3 liters oxygen via nasal cannula. The patient, however, has had a significant increase in shortness of breath. She also did have overnight positive cultures with a temperature elevated to 38.2. Blood cultures were positive for gram-positive cocci. They are in 2 different specimens. The patient does complain of leg pain as well. The patient answers [facility] [address] [place] [address] CONSULTATION Name: ETIENNE SPARKS Room: [address]#: [id number] Admission: 08/16/17 Attend Phys: Bassam Noe MD Discharge: Date of : 32 Report #: [id number] to the negative for 12 questions for review of systems, except as mentioned above. The patient's ability to answer questions, however, appears to be limited, although she is alert, awake and oriented. PAST MEDICAL HISTORY: Chronic kidney disease. I do not have a previous creatinine available. Based on recent records, her baseline creatinine may be around 1.9; however, I am not fully certain of this. Known alcoholic cirrhosis of liver with esophageal varices. DVT in the past, the patient does not recall details. Note that there is a DVT noted on her venous Dopplers we have just had performed. 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 The patient has recently had an echocardiogram performed, which shows a normal left ventricular ejection fraction of 60-65%. The left atrium; however, is severely dilated. There is mild mitral regurgitation and a pulmonary artery systolic of 45-50. SOCIAL HISTORY: A lifetime nonsmoker. No known history of heavy alcohol use or illegal drug use. CURRENT MEDICATIONS: The list is in [employer] and reviewed. Medications during the last admission, also list reviewed. The patient was treated with Zosyn during the last hospitalization. FAMILY HISTORY: There is no pertinent family history reported in the records. The patient did not also provide any pertinent family history. ALLERGIES: THERE ARE MULTIPLE ALLERGIES LISTED IN THE CHART, THE LIST IS REVIEWED. PHYSICAL EXAMINATION: GENERAL: She is fully alert, awake and oriented; however, has been able to provide only a limited history. VITAL SIGNS: Has a pulse of 62 and a blood pressure of 115/60. She has been saturating in the mid 90s. She is on 3 liters nasal cannula. She is afebrile with a temperature last recorded 36.4. She did have a high-grade fever up to 38.2 overnight. Her respiratory rate is around 20. HEENT: Head is normocephalic and atraumatic. Pupils are equal and reactive. There is no throat erythema. NECK: Does not show raised JVP, asymmetry, mass or lymph nodes. CHEST: Symmetrical expansion on inspection and palpation. On auscultation, breath sounds are bilaterally equal, decreased. I do hear expiratory wheezes bilaterally. HEART: Regular. There is no murmur. ABDOMEN: Soft and nontender. EXTREMITIES: Lower extremities do show 2-3+ edema bilaterally. There is no calf tenderness. [place] [id number] CONSULTATION Name: ETIENNE SPARKS Mathew Room: [address] IN .R.#: [id number] Admission: 08/16/17 Attend Phys: Bassam Noe MD Discharge: Date of : 32 Report #: [id number] SKIN: Dry and intact. NEUROLOGICAL: Moves all extremities bilaterally equally and spontaneously with no focal deficit identified. The patient's chest x-ray does show bilateral pulmonary infiltrates. These are new compared with her previous x-rays from just the last week. There are also bilateral pleural effusions, left greater than right with interval thoracentesis since admission. Analysis on the pleural fluid is pending. ASSESSMENT AND PLAN: 1. Acute respiratory insufficiency. The patient does appear to be fluid overloaded. Her last CT chest from 08/10 primarily shows fluid overload with pleural effusions. There may be some small infiltrates present as well; however, the primary process and the CT appears to be fluid overload. Her new chest x-rays show interval development of bilateral pulmonary infiltrates. These findings appear to be new compared with the CT performed on the . I suspect that the patient may be continuing to aspirate, which may be a possible explanation of interval development of these pulmonary infiltrates. 2. Fluid volume overload with chronic renal failure and nonalcoholic cirrhosis of liver. She has had thoracentesis on the left side. Analysis is pending. I suspect that this will be a transudate. There are still significant pleural effusions present bilaterally. These are appearing to still contribute to her shortness of breath. These pleural effusions will be difficult to treat with diuresis considering her borderline blood pressures as well as renal failure. I will therefore go ahead and repeat a CT chest if significant pleural effusions are still seen. I would recommend a repeat thoracentesis. 3. Pulmonary infiltrates/suspected aspiration pneumonia/positive blood cultures for gram-positive cocci. Note that the infiltrative changes have developed while the patient was on treatment with Zosyn during the last hospitalization. The patient also is on vancomycin now. I recommend caution in using vancomycin and suggest watching her creatinine closely. The ID service has been consulted and I would therefore defer management of antibiotics to the ID service. I will go ahead and order some more cultures and serologies. 4. Dysphagia. The patient says that she coughs whenever she eats or drinks anything. I ordered n.p.o. except medications until a video swallow is performed, which hopefully we will be able to get this afternoon. If she is allowed a diet subsequently, then I would recommend strict aspiration precautions. 5. Bronchospasm. There appears to be a component of this as well. I increased her DuoNebs to q. 4 hours. I ordered 2 doses of Solu-Medrol. Suggest evaluating tomorrow regarding whether more Solu-Medrol should be considered. 6. Chronic deep venous thrombus. This is noted on her venous Dopplers. Based on her V/Q scan, I doubt that there is a pulmonary embolism. Considering her comorbid conditions including esophageal varices and a low hemoglobin, the patient may be a candidate for nonemergent placement of an IVC filter. I will discuss this with Dr. Noe. Meanwhile, if she is able to tolerate, I would [address] [address] CONSULTATION Name: ETIENNE SPARKS Room: [address] IN .R.#: [id number] Admission: 08/16/17 Attend Phys: Bassam Noe MD Discharge: Date of : 32 Report #: [id number] suggest giving her heparin at least in the prophylactic dose. She is currently on prophylactic dose of Lovenox. Considering her elevated creatinine, I discontinued her Lovenox after decisions regarding thoracentesis as discussed above. We would suggest considering subcutaneous heparin in the prophylactic dose. The patient is noted to be on a proton pump inhibitor. Thanks for this consultation. <ELECTRONICALLY SIGNED> By: Bertha Jenkins MD 08/18/17 0744 1151 [id number] Velazquez MD /nt
[2017-08-18 08:00] VITALS: BP 130/53
[2017-08-18 09:34] LABS: BF RBC <1000 /mm3; TOTAL CELL COUNT 166 /mm3
[2017-08-18 10:07] LABS: CLARITY CLEAR; COLOR YELLOW; TOTAL VOLUME 1260 ml
[2017-08-18 10:09] LABS: BF EOSINOPHILS 1 %; BF LYMPHOCYTES 59 %; BF MONOCYTES 23 %; BF POLYS 17 %; BF TISSUE 2 /100 WBC
[2017-08-18 10:10] LABS: SOURCE THORACENTESIS
--- NOTE | 2017-08-18 11:46 | CON ---
[address] [address] CONSULTATION Name: ETIENNE SPARKS Room: [address] IN M.R.#: [id number] Admission: 08/16/17 Attend Phys: Bassam Noe MD Discharge: Date of : 32 Report #: [id number] THIS REPORT FOR: //name// CC: Bassam [facility] Physician staff DATE OF SERVICE: 08/17/2017 ATTENDING PHYSICIAN: Bassam Noe MD REASON FOR EVALUATION: Gram-positive septicemia. HISTORY OF PRESENT ILLNESS: Chart reviewed, patient examined. This is an 86-year-old with fairly significant medical history. She is relatively new to the area, having come from [place] roughly 2 weeks ago. Does have advanced kidney disease, stage 3-4; cirrhosis, felt to be nonalcoholic; cardiomyopathy with a history of congestive heart failure who was admitted with weakness on 08/10. She stayed several days, adjusted her medical regimen. She was readmitted on the again with weakness and had cough, felt to have pneumonitis. As part of the evaluation, blood cultures were done. It is notable they were done on and they were sterile. Repeat done on the were 2/2 positive for gram-positive cocci. Empirically, placed on piperacillin/tazobactam, vancomycin was added. She is chronically weak and does have some ongoing issues with left shoulder pain, had a previous fracture. She has had some intermittent low-grade temperature elevations. Appetite has been diminished, poor p.o. intake, has persistent cough. She describes a productive of, kind of, white to greenish sputum. ALLERGIES: NUMEROUS INCLUDING NONSTEROIDALS, QUINOLONES, IODINE, ASPIRIN, CELECOXIB. CURRENT MEDICATIONS: Include ergocalciferol, vancomycin, ipratropium, albuterol inhaler, sertraline, fish oil, memantine, pantoprazole, Zosyn, gabapentin, p.r.n. analgesics, antiemetics. PAST MEDICAL HISTORY: As described above, advanced kidney disease, nonalcoholic cirrhosis, cardiomyopathy, has a pacemaker, gastric bypass, osteoporosis, depression, insomnia, bariatric surgery, monoclonal paraproteinemia, macular degeneration, keratoconjunctivitis, sicca, chronic anemia, hypertension, myxedema, sick sinus syndrome, history of DVT, vitamin D deficiency, does have esophageal varices, hyperparathyroidism. SOCIAL HISTORY: Nonsmoker, no ethanol. FAMILY HISTORY: [place] [address] CONSULTATION Name: ETIENNE SPARKS Room: [address]#: [id number] Admission: 08/16/17 Attend Phys: Bassam Noe MD Discharge: Date of : 32 Report #: [id number] REVIEW OF SYSTEMS: As above. PHYSICAL EXAMINATION: GENERAL: She appears chronically ill, is pleasant, cooperative, mild to moderate distress. She is undernourished. VITAL SIGNS: Temperature 97.9, pulse 75, respirations 17, blood pressure 138/50. SKIN: Warm, dry. No lesion. HEENT: Otherwise, unremarkable. NECK: Supple. LUNGS: Few scattered coarse breath sounds. HEART: Regular. I do not appreciate any murmur. ABDOMEN: Soft, nontender, nondistended. EXTREMITIES: No cyanosis. GENITOURINARY AND RECTAL: Deferred. LABORATORY DATA: Blood cultures 2/2 with gram-positive cocci. Chest x-ray showed cardiomegaly with vascular congestion, bilateral effusions and perihilar infiltrate thoracentesis report. Body fluid analysis showed 131 white cells, less than 1000 red cells, 13% polys, 20% monos, 67% lymphs. Venous Doppler of the lower extremity shows chronic appearing nonocclusive deep venous thrombosis involving the right common femoral vein. VQ scan: No significant ventilatory or perfusion defects, low probability. Ammonia 32. ABGs: A pH 7.233, pCO2 of 43.9, pO2 of 147.4 on 2 liters. CBC: White count 12.5, H and H 10.6 and 30.8, platelets of 170. Electrolytes: Sodium 147, potassium 3.6, chloride 106, bicarbonate is 21, anion gap of 10, BUN and creatinine are 19 and 1.9, glucose of 100. LFTs unremarkable. Albumin of 2.4, total protein 6.1. Estimated GFR of 25. ASSESSMENT: Gram-positive septicemia in a setting of, appears to be pneumonitis, maybe on the basis of multiple factors including some degree of vascular congestion. Interestingly, she had 2 blood cultures collected on the , which were sterile. We will continue current antimicrobial approach. I think at this point after considered to be true positive, one can exclude Pneumococcus, perhaps Staphylococcus. In the event, we will go ahead and add incentive spirometry. Go ahead and check an echo. <ELECTRONICALLY SIGNED> By: Chago Babcock MD 08/18/17 1146 1345 [id number] Babcock MD /nt
--- NOTE | 2017-08-18 13:03 | NUR ---
ASSUMED PT CARE AT 0730, FULL ASSESMENT DONE CHARTED. PT A/O X4, LUNGS COURSE, ON 2L O2 NC. PT HAD RIGHT THORACENTESIS THIS AM, 1260ML TAKEN OFF. PT LESS COURSE ON RETURN. EATING WELL. NO S/S OF ASPERATION, ST DOING VIDEO SWALLOW THIS AFTERNOON. PT USING CALL LIGHT APPROPRIALTY. FALL PRECATUIONS IN PLACE. WILL CONINTUE WITH PLAN OF CARE.
[2017-08-18 16:00] VITALS: BP 113/39
[2017-08-18 18:26] LABS: CALCIUM 8.3 mg/dL (8.5-10.1); CREATININE 2.6 mg/dL (0.6-1.3); MAGNESIUM 1.8 mg/dL (1.8-2.4); POTASSIUM 3.2 mmol/L (3.5-5.1)
[2017-08-19 00:55] VITALS: BP 104/35
--- NOTE | 2017-08-19 04:11 | NUR ---
ASSUMED PT CARE AT 1930. ASSESSMENT COMPLETED CHARTED. PT IN BED, SLEEPING AT THIS TIME. PT ON BEDREST, ASKS FOR BEDPAN APPROPRIATE, TOLERATING THIN LIQUIDS, NO C/O PAIN OR DISCOMFORT. ABLE TO MAKE NEEDS KNOWN, A & O X 4 WITH SOME FORGETFULNESS, Q2HR TURNS. WILL CONTINUE TO MONITOR.
[2017-08-19 04:27] VITALS: BP 102/33
[2017-08-19 04:34] LABS: ABSOLUTE EOSINOPHILS 0.2 thou/uL (0.0-0.7); ABSOLUTE LYMPHOCYTES 2.1 thou/uL (0.8-5.3); ABSOLUTE MONOCYTES 0.7 thou/uL (0.0-1.2); ABSOLUTE NEUTROPHILS 8.3 thou/uL (1.6-8.1); BASOPHILS 0.4 %; EOSINOPHILS 1.5 %; HEMATOCRIT 25.9 % (37.0-47.0); LYMPHOCYTES 18.3 %; MCH 29.5 pg (26.0-34.0); MCHC 30.8 g/dL (28.0-37.0); MONOCYTES 6.3 %; MPV 8.7 fl. (7.2-11.1); NUCLEATED RBCS 0 /100WBC; PLATELET COUNT* 120 thou/uL (150-400); POLYS 73.5 %; RDW-CV 20.1 % (10.5-14.5); WBC 11.3 thou/uL (4.0-11.0)
[2017-08-19 05:11] LABS: ALBUMIN 1.9 g/dL (3.4-5.0); CALCIUM 8.2 mg/dL (8.5-10.1); CREATININE 2.6 mg/dL (0.6-1.3); POTASSIUM 3.5 mmol/L (3.5-5.1); TOTAL BILIRUBIN 0.3 mg/dL (<0.1-1.0); TOTAL PROTEIN 4.9 g/dL (6.4-8.2)
[2017-08-19 08:00] VITALS: BP 103/39
--- NOTE | 2017-08-19 09:11 | NUR ---
ASSUMED PT CARE AT 0730, FULL ASSESMENT DONE CHARTED. PT A/O X4, FORGETFUL, PLEASANT, C/O HERNANDEZ PAIN. PT GIVEN TYLENOL. BP HAS BEEN RUNNING LOW. SPOKE TO DR PEREZ, TOLD TO HOLD LOPRESSOR. ALL OTHER VSS, 100% ON 2L O2. LUNGS DIM BUT CLEAR TODAY. SR/BBB ON MONITOR. ATE MOST OF BREAKFAST. FALL PRECATUIONS IN PLACE. CALL LIGHT IN REACH. WILL CONTINUE WITH PLAN OF CARE
[2017-08-19 11:30] VITALS: BP 102/41
--- NOTE | 2017-08-19 15:28 | NUR ---
RECEIVED CONSULT FOR POSSIBLE REHAB ADMISSION. CONSULT HAS BEEN ACKNOWLEDGED BY BUTADI[employer] COMPRESSOR OPERATOR AND DR. DUONG. PT WITH DX OF ACUTE RESP. FAILURE, ENCEPHALOPATHY, REDCURRENT PNEUMONITIS WITH PLEURAL EFFUSSIONS S/P THORACENTESIS. DOING BETTER BUT DEBILITATED. WORKING WITH THERAPIES. WILL FOLLOW ALONG WITH PT TO SEE HOW SHE PROGRESSES AND IF QUALIFIES AND ABLE TO TOLERATE ACUTE REHAB ONCE MEDICALLY STABLE. THANK YOU FOR THIS CONSULT.
[2017-08-19 16:18] VITALS: BP 115/34
--- NOTE | 2017-08-19 17:53 | NUR ---
PT UP TO CHAIR SEVERAL TIMES TODAY. FEELING "TIRED", WORKED WITH PT/OT/ST TODAY. MEDS GIVEN PER MAR. PT TURNED Q2 HRS. FALL PRECATIONS IN PLACE, PT USES CALL LIGHT APPROPRIALTY. WILL CONTINUE WITH PLAN OF CARE.
[2017-08-19 18:22] LABS: SOURCE RT PLEURAL FLUID
[2017-08-19 20:00] VITALS: BP 109/38
[2017-08-19 21:07] LABS: BODY FLUID LDH 59 IU/L (()); BODY FLUID PROTEIN 1.2 g/dL (())
[2017-08-20 00:39] VITALS: BP 121/40
--- NOTE | 2017-08-20 03:06 | NUR ---
ASSUMED PT CARE AT 1930, PT IS A&OX4, SHE CAN BE FORGETFUL AT TIMES. PT IS TRACING APACED ON THE MONITOR, ON 2L NC SATTING MID TO HIGH 90'S. PT HAS THORACENTESIS TO R AND LEFT SIDE THIS HOSPITAL STAY. DRESSING IN [place], CD[facility]. PT DENIES ANY PAIN OR NEEDS AT THIS TIME. PT REQUESTED SOMETHING TO HELP HER SLEEP, PRN MEDICATION GIVEN PER MAY. PT IS UP WITH ONE TO THE BSC THIS SHIFT. PT IS ON ISOALTION FOR ESBL IN URINE. BED IN LOW POSITION, CALL LIGHT IN REACH, BED ALARM ON, YELLOW ARM BAND AND SOCKS IN PLACE. HOURLY ROUNDING COMPLETED FOR PT SAFETY.
[2017-08-20 04:23] VITALS: BP 102/40; BP 134/50
[2017-08-20 04:49] LABS: ABSOLUTE EOSINOPHILS 0.3 thou/uL (0.0-0.7); ABSOLUTE LYMPHOCYTES 1.5 thou/uL (0.8-5.3); ABSOLUTE MONOCYTES 0.4 thou/uL (0.0-1.2); ABSOLUTE NEUTROPHILS 4.2 thou/uL (1.6-8.1); BASOPHILS 0.6 %; EOSINOPHILS 4.6 %; HEMATOCRIT 24.6 % (37.0-47.0); HEMOGLOBIN 7.8 gm/dL (12.0-15.0); LYMPHOCYTES 23.4 %; MCH 30.2 pg (26.0-34.0); MCHC 31.6 g/dL (28.0-37.0); MCV 95.5 fL (80.0-100.0); MONOCYTES 6.9 %; MPV 7.9 fl. (7.2-11.1); NUCLEATED RBCS 0 /100WBC; PLATELET COUNT* 101 thou/uL (150-400); POLYS 64.5 %; RBC 2.57 mil/uL (4.20-5.00); RDW-CV 20.1 % (10.5-14.5); WBC 6.5 thou/uL (4.0-11.0)
[2017-08-20 05:09] LABS: PREALBUMIN 14.1 mg/dL (18.0-35.7)
[2017-08-20 05:37] LABS: ALBUMIN 1.8 g/dL (3.4-5.0); CALCIUM 7.8 mg/dL (8.5-10.1); CREATININE 2.7 mg/dL (0.6-1.3); POTASSIUM 3.6 mmol/L (3.5-5.1); TOTAL BILIRUBIN 0.2 mg/dL (<0.1-1.0); TOTAL PROTEIN 4.5 g/dL (6.4-8.2)
[2017-08-20 07:17] LABS: ANISOCYTOSIS 2+; PLATELET ESTIMATE DECREASED; POIKILOCYTOSIS 1+
[2017-08-20 08:00] VITALS: BP 114/41
--- NOTE | 2017-08-20 08:00 | NUR ---
ASSUMED CARE OF PT ASSESSED AND DOCUMENTED. PT ON CARDIAC MONITER TRACING APACED HR 79. PT IS A&O WITH NO C/O PAIN. SHE IS AFEBRILE. PT IS ON ISO FOR ESBL. SHE IS ON 2L OF 02. SHE HAS NOTED EDEMA IN BLLE'S. BED IS IN LOW POSITION CALL LIGHT IS IN REACH. WM.
--- NOTE | 2017-08-20 11:00 | NUR ---
DR CHEN CALLED. HE IS ORDERING A STAT VANC TROUGH. DO NOT HANG UNTILL HE HAS BEEN TEXT THE RESULTS AND GIVES THE ORDER.
[2017-08-20 11:30] VITALS: BP 158/59
[2017-08-20 16:00] VITALS: BP 119/61
--- NOTE | 2017-08-20 17:44 | NUR ---
PT HAS RESTED IN HER ROOM THIS SHIFT. SHE IS UP IN BEDSIDE CHAIR. PT HAS HAD NO S OR SX OF ADVERSE REACTION TO ABT NOTED. SHE HAS HAD NO C/O PAIN OR DISCOMFORT. EDUCATION GIVEN ON DEMAND. HOURLY ROUNDING COMPLETE. PT IS TO BE NPO AFTER MIDNIGHT FOR EGD.
[2017-08-20 20:00] VITALS: BP 110/58
[2017-08-21 00:39] VITALS: BP 121/49
[2017-08-21 01:21] VITALS: BP 121/49
[2017-08-21 04:39] VITALS: BP 114/35
[2017-08-21 05:05] LABS: ABSOLUTE EOSINOPHILS 0.5 thou/uL (0.0-0.7); ABSOLUTE LYMPHOCYTES 1.6 thou/uL (0.8-5.3); ABSOLUTE MONOCYTES 0.5 thou/uL (0.0-1.2); ABSOLUTE NEUTROPHILS 3.6 thou/uL (1.6-8.1); BASOPHILS 0.6 %; HEMATOCRIT 25.9 % (37.0-47.0); HEMOGLOBIN 8.1 gm/dL (12.0-15.0); LYMPHOCYTES 25.2 %; MCHC 31.4 g/dL (28.0-37.0); MCV 95.6 fL (80.0-100.0); MONOCYTES 8.2 %; NUCLEATED RBCS 0 /100WBC; PLATELET COUNT* 105 thou/uL (150-400); RBC 2.71 mil/uL (4.20-5.00); RDW-CV 20.3 % (10.5-14.5); WBC 6.3 thou/uL (4.0-11.0)
[2017-08-21 05:26] LABS: ALBUMIN 1.9 g/dL (3.4-5.0); CALCIUM 7.9 mg/dL (8.5-10.1); CREATININE 2.7 mg/dL (0.6-1.3); POTASSIUM 3.5 mmol/L (3.5-5.1); TOTAL BILIRUBIN 0.2 mg/dL (<0.1-1.0)
--- NOTE | 2017-08-21 06:11 | NUR ---
ASSUMED PT CARE AT 1930, PT IS A&OX4, PT IS TRACING A PACED ON THE MONITOR, ON 2L CN SATTING MID TO HIGH 90'S. PT DENIES ANY PAIN OR NEEDS AT THIS TIME. PT IS NPO AT THIS TIME FOR ABD US AND PENDING EGD TODAY. PT IS ON ISOLATION FOR ESBL IN HER URINE. PT IS UP WITH ONE TO THE BSC. BED IN LOW POSITION, CALL LIGHT IN REACH, BED ALARM ON, YELLOW ARM BAND AND SOCKS IN PLACE, HOURLY ROUNDING COMPETED FOR PT SAFETY.
[2017-08-21 08:00] VITALS: BP 135/45
[2017-08-21 08:29] LABS: ANISOCYTOSIS 2+; PLATELET ESTIMATE DECREASED
--- NOTE | 2017-08-21 09:00 | NUR ---
PT DOWN FOR EGD. ON RETURN ASSESSED PT AND DOCUMENTED. PT CONT ON ISO FOR ESBL. VSS WNL. SHE IS AFEBRILE. PT HAS 3+ EDEMA IN BLLE'S. SHE HAS A PACEMAKER. BED IS IN LOW POSITION CALL LIGHT IS IN REACH. WM.
--- NOTE | 2017-08-21 11:22 | NUR ---
SPOKE WITH ADELA FROM LAB ABOUT [facility]. SHOWED HER THE ORDER.
--- NOTE | 2017-08-21 12:14 | NUR ---
DR MARAVILLA IS CANCELING ANTONIO. HE STATES HE WILL PUT IN THE ORDER.
--- NOTE | 2017-08-21 12:48 | NUR ---
CALLED DIETERY FOR LUNCH. PT FINISHING ULTRASOUND IN HER ROOM.
--- NOTE | 2017-08-21 14:42 | NUR ---
CALLED REPORT TO NINO QUINONES. CALLED PTS DAUGHTER MAMIE SPOKE WITH . PT MOVED TO ROOM 307. ALL BELONGINGS PACKED UP AND LEFT WITH PT ACCOMPANIED BY DEPARTMENT STORE MANAGER MAME.
--- NOTE | 2017-08-21 14:54 | NUR ---
ASSUMED CARE OF PATIENT AT THIS TIME. ALERT AND ORIENTED. DENIES PAIN. LOWER EXTREMETIES EDEMATOUS. IV SALINE LOCKED. O2 AT 2L.SAT 97%. PATIENT ORIENTED TO NEW ROOM. DRESSING TO RIGHT LEG C/D/I. ISOLATION FOR ESBL IN URINE. BED ALARM SET. AGREE WITH PREVIOUS ASSESSMENT. WILL CONTINUE TO MONITOR.
[2017-08-21 16:00] VITALS: BP 142/54
--- NOTE | 2017-08-21 16:25 | NUR ---
PATIENT REFUSING OXYGEN. NOSE IRRITATED AND BLEEDING. RA SAT 94%. SOCKS REMOVED DUE TO THEM CUTTING INTO SKIN. REMAINS IN ISOLATION. CALL LIGHT WITHIN REACH. WILL CONTINUE TO MONITOR.
[2017-08-21 21:00] VITALS: BP 115/66; BP 137/51
[2017-08-22 04:47] LABS: ABSOLUTE EOSINOPHILS 0.5 thou/uL (0.0-0.7); ABSOLUTE LYMPHOCYTES 1.3 thou/uL (0.8-5.3); ABSOLUTE MONOCYTES 0.4 thou/uL (0.0-1.2); ABSOLUTE NEUTROPHILS 3.9 thou/uL (1.6-8.1); BASOPHILS 0.5 %; EOSINOPHILS 8.4 %; HEMOGLOBIN 8.2 gm/dL (12.0-15.0); LYMPHOCYTES 21.1 %; MCH 29.8 pg (26.0-34.0); MCHC 31.5 g/dL (28.0-37.0); MCV 94.4 fL (80.0-100.0); MONOCYTES 7.1 %; MPV 8.9 fl. (7.2-11.1); NUCLEATED RBCS 0 /100WBC; PLATELET COUNT* 117 thou/uL (150-400); POLYS 62.9 %; RBC 2.76 mil/uL (4.20-5.00); RDW-CV 20.3 % (10.5-14.5); WBC 6.2 thou/uL (4.0-11.0)
[2017-08-22 04:56] LABS: ALBUMIN 1.9 g/dL (3.4-5.0); CREATININE 2.5 mg/dL (0.6-1.3); POTASSIUM 3.6 mmol/L (3.5-5.1); TOTAL BILIRUBIN 0.2 mg/dL (<0.1-1.0); TOTAL PROTEIN 5.1 g/dL (6.4-8.2)
--- NOTE | 2017-08-22 06:20 | NUR ---
ALERT AND ORIENTED. UP WITH STAND BY ASSIST TO BEDSIDE COMMODE. DENIED NEED FOR PAIN OR NAUSEA MEDICATION. O2 SAT DURING NIGHT WAS 97% ON ROOM AIR. CALL LIGHT WITHIN REACH.
[2017-08-22 07:11] LABS: PLATELET ESTIMATE DECREASED
[2017-08-22 07:13] LABS: ANISOCYTOSIS 1+; OVALOCYTES Occasional; POIKILOCYTOSIS 1+; TEARDROPS Occasional
--- NOTE | 2017-08-22 08:22 | CON ---
[address] [address] CONSULTATION Name: SPARKSPRINCE EDWARD ISL L Room: [address] IN ..#: [id number] Admission: 08/16/17 Attend Phys: Bassam Noe MD Discharge: Date of : 32 Report #: [id number] THIS REPORT FOR: //name// CC: Bassam [facility] Physician staff DATE OF SERVICE: 08/20/2017 REASON FOR CONSULT: Severe anemia. HISTORY OF PRESENT ILLNESS: This is an 86-year-old female who used to reside in [place] and lives with her daughter in [facility]. The patient apparently was admitted with shortness of air and respiratory failure due to CHF and pneumonia. She also is known to have history of cryptogenic cirrhosis and esophageal varices. Her hemoglobin is in 7 range, but she denies any hematochezia or melena or hematemesis. She also denies any dyspepsia or dysphagia. PAST MEDICAL HISTORY: Significant for history of congestive heart failure, chronic kidney disease, pneumonia, cryptogenic liver disease, vitamin D deficiency, hypertension, depression, history of bradycardia, status post pacemaker placement, gastric bypass surgery, osteoporosis, insomnia, bariatric surgery, macular degeneration, dermatophytosis, hepatic encephalopathy, anemia, syncope. ALLERGIES: Significant to ASPIRIN, CELECOXIB, IODINE, QUINOLONES, , TAPE AND SHELLFISH. MEDICATIONS: Please refer to hospital [facility]. SOCIAL HISTORY: The patient used to live in [place], but since her daughter moved to [facility], she has moved with them. She has history of cryptogenic cirrhosis and varices. FAMILY HISTORY: Noncontributory. PHYSICAL EXAMINATION: VITAL SIGNS: Reveals blood pressure of 114/41, respirations 16, pulse 83, temperature 97.7. LUNGS: Decreased breath sounds at the bases, clear otherwise. CARDIOVASCULAR: Regular rate. ABDOMEN: Soft, nontender, nondistended. NEUROLOGIC: The patient is alert, [place] [address] [address] CONSULTATION Name: BRIDGERPRINCE EDWARD ISL L Room: [address] IN [facility]#: [id number] Admission: 08/16/17 Attend Phys: Bassam Noe MD Discharge: Date of : 32 Report #: [id number] LABORATORY DATA: Revealed sodium of 148, potassium 3.6, BUN is 30, creatinine 2.7, glucose 122, total bilirubin is 0.2, alkaline phosphatase is 62. Ammonia level is 32. INR is 1.2. WBC 6.5 with hemoglobin of 7.8 and platelet of 101. IMAGING: Swallow study was performed, which showed no evidence of aspiration. There is mild laryngeal penetration. ASSESSMENT AND PLAN: I would order abdominal ultrasound and AFP to further evaluate her liver disease. Meanwhile, we will schedule her for upper endoscopy to evaluate her varices and anemia. We will make further recommendation once her abdominal ultrasound and AFP are complete. <ELECTRONICALLY SIGNED> By: Amy Lorenzana MD 08/22/17 0822 1308 [id number] Lorenzana MD /nt
[2017-08-22 09:00] VITALS: BP 135/87
[2017-08-22 16:00] VITALS: BP 160/59
--- NOTE | 2017-08-22 16:58 | NUR ---
pt up in chair for most of day. pt up to bsc with min assist using walker and gait belt. pt can be unsteady. denies soa, respirations even and unlabored at rest, minimal soa with activity. o2 sat mid to upper 90's depending on activity, 2l 02 nc. pt denies pain or other discomforts. pt able to make nees known, call light in reach
[2017-08-22 20:00] VITALS: BP 148/49
[2017-08-23 04:19] LABS: ABSOLUTE EOSINOPHILS 0.5 thou/uL (0.0-0.7); ABSOLUTE LYMPHOCYTES 1.4 thou/uL (0.8-5.3); ABSOLUTE MONOCYTES 0.5 thou/uL (0.0-1.2); ABSOLUTE NEUTROPHILS 3.1 thou/uL (1.6-8.1); BASOPHILS 0.8 %; EOSINOPHILS 8.6 %; HEMATOCRIT 26.3 % (37.0-47.0); HEMOGLOBIN 8.2 gm/dL (12.0-15.0); MCH 29.9 pg (26.0-34.0); MCHC 31.3 g/dL (28.0-37.0); MCV 95.4 fL (80.0-100.0); MONOCYTES 8.9 %; MPV 8.3 fl. (7.2-11.1); NUCLEATED RBCS 0 /100WBC; PLATELET COUNT* 116 thou/uL (150-400); POLYS 55.7 %; RBC 2.75 mil/uL (4.20-5.00); RDW-CV 20.4 % (10.5-14.5); WBC 5.5 thou/uL (4.0-11.0)
[2017-08-23 04:25] LABS: CREATININE 2.3 mg/dL (0.6-1.3); POTASSIUM 3.6 mmol/L (3.5-5.1)
--- NOTE | 2017-08-23 04:40 | NUR ---
PT SLEPT SOUNDLY DURING THE NIGHT, UP WITH ASSIST TO THE BSC, NOW ON ROOM AIR, PLEASANT, CONFUSED AT TIMES, NEW IV PLACED DURING THE NIGHT, CALL LIGHT IN REACH, BED ALARM ON FOR SAFETY, WILL CONTINUE TO MONITOR
[2017-08-23 05:56] LABS: ANISOCYTOSIS 1+; MACROCYTES Occasional; MICROCYTES Occasional; POIKILOCYTOSIS 1+
[2017-08-23 05:57] LABS: OVALOCYTES Occasional
[2017-08-23 05:58] LABS: TEARDROPS Occasional
[2017-08-23 07:50] VITALS: BP 146/52
--- NOTE | 2017-08-23 14:24 | NUR ---
Pt possibly to dc to inpt rehab at [facility]; awaiting insurance authorization. SW to continue to follow to assist with safe dc planning.
[2017-08-23 16:00] VITALS: BP 159/55
--- NOTE | 2017-08-23 17:18 | NUR ---
CONTINUEING TO FOLLOW PT ALONG WITH DR. DUONG. PT WORKING WITH THERAPIES CONTINUES TO IMPROVE. HAVE INITIATED INSURANCE AUTH. PLAN TO ACCEPT PT TO REHAB PENDING INSURANCE AUTHORIZATION. NOTIFIED CHARLOTTE WADE OF TENTATIVE PLAN.
--- NOTE | 2017-08-23 18:04 | NUR ---
PATIENT IS ALERT AND ORIENTED, SOMETIMES FORGETFUL, VERY PLEASANT. UP WITH STAND BY TO THE BEDSIDE COMMODE. NO COMPLAINTS OF ANY KIND TODAY. VITAL SIGNS HAVE BEEN STABLE ON ROOM AIR. CALL LIGHT IS IN REACH, WILL CONTINUE TO MONITOR.
[2017-08-23 23:29] VITALS: BP 134/51
--- NOTE | 2017-08-24 06:33 | NUR ---
ASSUMED CARE OF PATIENT ABOUT 0300. PATIENT SLEPT MOST OF THE NIGHT. PATIENT IS POSSIBLY GOING TO REHAB TODAY. WILL CONTINUE TO MONITOR.
[2017-08-24 09:30] VITALS: BP 129/50
[2017-08-24] MEDS ORDERED: PROTONIX40 M1 PO (11:55)
[2017-08-24] MEDS ORDERED: BUMEX PO (11:58)
[2017-08-24] MEDS ORDERED: AUGMENTIN PO (11:58)
[2017-08-24] MEDS ORDERED: DUONEB 2.5-0.5 M3 ML INH (11:59)
[2017-08-24] MEDS ORDERED: ELIQUIS2.5 MG PO (12:00)
[2017-08-24 12:02] VITALS: BP 129/50
--- NOTE | 2017-08-24 12:42 | CON ---
[address] [address] CONSULTATION Name: ETIENNE SPARKS Mathew Room: [address] IN M.R.#: [id number] Admission: 08/16/17 Attend Phys: Bassam Noe MD Discharge: Date of : 32 Report #: [id number] THIS REPORT FOR: //name// CC: Bassam SAMAYOA Physician staff REASON FOR CONSULTATION AND HISTORY OF PRESENT ILLNESS: Evaluation and recommendations regarding post-acute rehabilitation in an 86-year-old female with acute on chronic respiratory failure, recurrent pneumonitis, possible aspiration pneumonia, recent shoulder and rib fractures, history of pacemaker placement, esophageal varices, encephalopathy and weakness. She, previous level of function, she was recently hospitalized, but prior to hospitalization was modified independent to independent with activities of daily living. Currently, she is standby assist to maximum assistance with occupational therapy minimum to moderate assistance with physical therapy and has qlqh-ij-kshsoker deficits with memory, cognition, problem solving. She does have a history of encephalopathy. MEDICATIONS: Reviewed and are available in the MAR. PAST MEDICAL HISTORY: Nonalcoholic cirrhosis, kidney disease stage 3, pacemaker, bradycardia, gastric bypass, bunion, depressive disorder, insomnia, keratoderma, monoclonal paraproteinemia, pruritic disorder, macular degeneration, keratoconjunctivitis sicca, falls, hepatic encephalopathy, anemia, bradycardia. FAMILY HISTORY: No pertinent family history. SOCIAL HISTORY: No tobacco, alcohol or illicit drug use. REVIEW OF SYSTEMS: A 14-point review of systems is done and is negative except as mentioned in HPI. ASSESSMENT: Ajrni-et-pthglmb respiratory failure, recurrent pneumonitis, acute on chronic congestive heart failure, cirrhosis. PLAN: 1. Continue with PT and OT. 2. Await possible authorization for inpatient rehabilitation. 3. We will follow. <ELECTRONICALLY SIGNED> By: Monique Nash DO 08/24/17 1242 1459 [id number] Nash DO /nt
[2017-08-24 16:16] VITALS: BP 126/47
--- NOTE | 2017-08-24 16:54 | NUR ---
HEATHER was informed that insurance denied authorization for inpt rehab but that Dr Nash will do peer to peer. HEATHER discussed dc planning with pt and pt dtr who were hoping for inpt rehab option but would be open to back up option of SNF at [facility]. HEATHER sent referral to [facility] and possible for pt to dc to SNF if peer to peer does not overturn insurance decision to auth inpt rehab. Pending result of peer to peer and then pending SNF auth to determine dc placement. HEATHER to continue to follow to assist with finalizing safe dc plan.
--- NOTE | 2017-08-24 17:13 | NUR ---
PATIENT AWAITING FOR SNF PLACEMENT. DR. PEREZ AWARE THAT INSURANCE DENIED FOR PATIENT TO GO TO REHAB. IV REMAINS SL. MEPILEX TO RIGHT LEG CHANGED PER PROTOCOL. PATIENT WORKED WITH PT/OT TODAY. NO COMPLAINTS THIS SHIFT.
[2017-08-24 20:00] VITALS: BP 105/41
--- NOTE | 2017-08-25 06:32 | NUR ---
PATIENT USES CALL LIGHT APPROPRIATELY FOR ASSISTANCE TO THE BATHROOM. PT WITH ONE MEDIUM LOOSE BOWEL MOVEMENT. PT WITH SALINE LOCK IN RT AC, PATENT. PATIENT WITH 3+ EDEMA ON LOWER EXTREMITIES. PT WITH OPEN WOUND ON RT LEG; MEPELIX PLACED ON IT YESTERDAY BY DAY SHIFT. DSG REMAINS C/D/I. PT DENIES NEEDS AT THIS TIME. FREQUENTLY USED ITEMS AND CALL LIGHT WITHIN REACH. SIDERAILS UPX3 AND BED ALARM ON. PT REMAINS IN ISOLATION FOR ESBL. WILL CONTINUE TO MONITOR.
[2017-08-25 07:50] VITALS: BP 151/54
[2017-08-25 08:44] VITALS: BP 151/54
--- NOTE | 2017-08-25 13:32 | NUR ---
Pt to dc to inpt rehab today; insurance authorization was received; SW spoke with pt dtr and pt dtr was very pleased with outcome and dc plan.
--- NOTE | 2017-08-25 13:55 | NUR ---
PATIENT DISCHARGED TO INPATIENT REHAB. REPORT GIVEN TO MARILYNN. BELONGINGS PACKED AND TAKEN TO ROOM 327. PATIENT TRANSPORTED TO ROOM 327.
== END 2017-08-25 13:55 | DRG 871 ==
LOC: M.ERS 10:40 → M.TBA-ER 11:49 → M.2W 11:49 → M.3W 08-21 14:45
PROVIDERS: Internal Medicine; Internal Medicine Critical Care Medicine; Internal Medicine Pulmonary Disease; Personal Emergency Response Attendant; ADMIT Internal Medicine
PROC: 0W9B3ZZ Drainage of Left Pleural Cavity, Percutaneous Approach (ICD-10-PCS; principal; 2017-08-16)
PROC: 0W993ZZ Drainage of Right Pleural Cavity, Percutaneous Approach (ICD-10-PCS; 2017-08-18)
PROC: 0DJ08ZZ Inspection of Upper Intestinal Tract, Via Natural or Artificial Opening Endoscopic (ICD-10-PCS; 2017-08-21)
DX: A41.89 Other specified sepsis (principal); J69.0 Pneumonitis due to inhalation of food and vomit; G93.40 Encephalopathy, unspecified; J96.20 Acute and chronic respiratory failure, unspecified whether with hypoxia or hypercapnia; I82.509 Chronic embolism and thrombosis of unspecified deep veins of unspecified lower extremity; J90 Pleural effusion, not elsewhere classified; I85.00 Esophageal varices without bleeding; N18.4 Chronic kidney disease, stage 4 (severe); I13.0 Hypertensive heart and chronic kidney disease with heart failure and stage 1 through stage 4 chronic kidney disease, or unspecified chronic kidney disease; E87.0 Hyperosmolality and hypernatremia; E87.70 Fluid overload, unspecified; K74.60 Unspecified cirrhosis of liver; M81.0 Age-related osteoporosis without current pathological fracture; I50.9 Heart failure, unspecified; D69.6 Thrombocytopenia, unspecified; F32.9 Major depressive disorder, single episode, unspecified; G47.00 Insomnia, unspecified; I49.5 Sick sinus syndrome; E21.3 Hyperparathyroidism, unspecified; R13.10 Dysphagia, unspecified; R62.7 Adult failure to thrive; D64.9 Anemia, unspecified; K44.9 Diaphragmatic hernia without obstruction or gangrene; Z95.0 Presence of cardiac pacemaker; Z88.8 Allergy status to other drugs, medicaments and biological substances; Z88.6 Allergy status to analgesic agent; Z91.041 Radiographic dye allergy status; Z91.013 Allergy to seafood

== ENCOUNTER 2017-08-25 13:12 | Inpatient (IN) | payer OTHER ==
[~2017-08-25] VITALS: Ht 149.9 cm; Wt 70.4 kg
[~2017-08-25 13:12] MED LIST changes: +AUGMENTIN PO; +BUMEX PO; +DUONEB 2.5-0.5 M3 ML INH; +ELIQUIS2.5 MG PO; +PROTONIX40 M1 PO
[2017-08-25 14:20] VITALS: BP 142/46
[2017-08-25 20:15] VITALS: BP 142/46
[2017-08-26 03:57] LABS: HEMATOCRIT 25.6 % (37.0-47.0); HEMOGLOBIN 8.3 gm/dL (12.0-15.0); MCHC 32.3 g/dL (28.0-37.0); MCV 93.1 fL (80.0-100.0); MPV 8.5 fl. (7.2-11.1); RBC 2.75 mil/uL (4.20-5.00); RDW-CV 20.3 % (10.5-14.5); WBC 5.1 thou/uL (4.0-11.0)
[2017-08-26 04:10] LABS: CALCIUM 8.5 mg/dL (8.5-10.1)
[2017-08-26 08:49] VITALS: BP 125/35
[2017-08-26 20:22] VITALS: BP 141/43
[2017-08-27 08:00] VITALS: BP 124/46
[2017-08-27 20:17] VITALS: BP 134/52
[2017-08-28 08:04] VITALS: BP 109/33
[2017-08-28 20:27] VITALS: BP 125/34
[2017-08-29 04:03] LABS: HEMATOCRIT 23.5 % (37.0-47.0); HEMOGLOBIN 7.5 gm/dL (12.0-15.0); MCH 30.3 pg (26.0-34.0); MCHC 32.1 g/dL (28.0-37.0); MCV 94.4 fL (80.0-100.0); MPV 8.6 fl. (7.2-11.1); RBC 2.49 mil/uL (4.20-5.00); RDW-CV 20.4 % (10.5-14.5); WBC 4.2 thou/uL (4.0-11.0)
[2017-08-29 04:21] LABS: MAGNESIUM 1.7 mg/dL (1.8-2.4); POTASSIUM 4.6 mmol/L (3.5-5.1)
[2017-08-29 08:00] VITALS: BP 119/43
[2017-08-29 19:56] VITALS: BP 141/42
[2017-08-30 08:00] VITALS: BP 110/39
[2017-08-30 19:30] VITALS: BP 132/35
[2017-08-30 21:00] VITALS: BP 156/44
[2017-08-31 12:00] VITALS: BP 116/41
[2017-08-31 20:35] VITALS: BP 123/40
[2017-09-01 08:00] VITALS: BP 111/26
[2017-09-01 08:30] VITALS: BP 112/52
[2017-09-01 20:35] VITALS: BP 137/45
[2017-09-02 08:13] VITALS: BP 116/42
[2017-09-02 09:08] VITALS: BP 116/42
[2017-09-02 20:30] VITALS: BP 123/41
[2017-09-03 08:08] VITALS: BP 90/40
[2017-09-03 20:00] VITALS: BP 128/54
[2017-09-04 04:20] LABS: HEMATOCRIT 23.7 % (37.0-47.0); HEMOGLOBIN 7.6 gm/dL (12.0-15.0); MCH 30.3 pg (26.0-34.0); MCV 94.6 fL (80.0-100.0); MPV 8.8 fl. (7.2-11.1); RBC 2.5 mil/uL (4.20-5.00); RDW-CV 20.6 % (10.5-14.5); WBC 4.9 thou/uL (4.0-11.0)
[2017-09-04 04:48] LABS: CALCIUM 8.2 mg/dL (8.5-10.1); CREATININE 2.2 mg/dL (0.6-1.3); MAGNESIUM 1.8 mg/dL (1.8-2.4); POTASSIUM 5.3 mmol/L (3.5-5.1)
[2017-09-04 07:55] VITALS: BP 114/38
[2017-09-04 19:30] VITALS: BP 155/54
[2017-09-05 04:49] LABS: HEMATOCRIT 24.2 % (37.0-47.0); HEMOGLOBIN 7.8 gm/dL (12.0-15.0); MCH 30.9 pg (26.0-34.0); MCHC 32.3 g/dL (28.0-37.0); MCV 95.6 fL (80.0-100.0); MPV 8.6 fl. (7.2-11.1); RBC 2.53 mil/uL (4.20-5.00); RDW-CV 20.4 % (10.5-14.5)
[2017-09-05 05:10] LABS: CALCIUM 8.5 mg/dL (8.5-10.1); CREATININE 2.2 mg/dL (0.6-1.3); MAGNESIUM 1.7 mg/dL (1.8-2.4); POTASSIUM 5.2 mmol/L (3.5-5.1)
[2017-09-05 07:42] VITALS: BP 126/35
[2017-09-05 20:05] VITALS: BP 145/51
[2017-09-06 08:51] VITALS: BP 112/51
[2017-09-06 21:20] VITALS: BP 159/59
[2017-09-07 07:39] VITALS: BP 102/30
[2017-09-07 19:30] VITALS: BP 138/51
[2017-09-08 07:30] VITALS: BP 106/40
[2017-09-08 15:31] LABS: % SATURATION 28 % (20-39); IRON 67 ug/dL (50-175)
[2017-09-08 20:00] VITALS: BP 138/69
[2017-09-09 04:41] LABS: HEMATOCRIT 23.4 % (37.0-47.0); HEMOGLOBIN 7.5 gm/dL (12.0-15.0); MCH 30.7 pg (26.0-34.0); MCHC 32.1 g/dL (28.0-37.0); MCV 95.6 fL (80.0-100.0); MPV 8.8 fl. (7.2-11.1); RBC 2.44 mil/uL (4.20-5.00); RDW-CV 20.4 % (10.5-14.5); WBC 3.6 thou/uL (4.0-11.0)
[2017-09-09 04:51] LABS: CALCIUM 8.4 mg/dL (8.5-10.1); CREATININE 2.2 mg/dL (0.6-1.3); POTASSIUM 4.6 mmol/L (3.5-5.1)
[2017-09-09 08:00] VITALS: BP 95/31
[2017-09-09 20:46] VITALS: BP 110/50
[2017-09-10 08:12] VITALS: BP 103/65
[2017-09-10 20:35] VITALS: BP 117/39
[2017-09-11 07:45] VITALS: BP 100/29
[2017-09-11 20:11] VITALS: BP 124/42
[2017-09-12 08:08] VITALS: BP 111/42
[2017-09-12 18:23] LABS: URINE BILIRUBIN NEGATIVE (Negative); URINE BLOOD NEGATIVE (Negative); URINE CLARITY CLEAR; URINE COLOR YELLOW; URINE GLUCOSE-RANDOM NEGATIVE (Negative); URINE KETONES NEGATIVE (Negative); URINE LEUKOCYTES NEGATIVE (Negative); URINE NITRITE NEGATIVE (Negative); URINE PROTEIN 1+ (Negative); URINE SPECIFIC GRAVITY 1.015 (1.005-1.030); URINE UROBILINOGEN 0.2 E.U./dl (0.2-1.0)
[2017-09-12 20:14] VITALS: BP 151/53
[2017-09-13 04:07] LABS: HEMATOCRIT 23.4 % (37.0-47.0); HEMOGLOBIN 7.5 gm/dL (12.0-15.0); MCH 30.8 pg (26.0-34.0); MCV 96.2 fL (80.0-100.0); MPV 8.6 fl. (7.2-11.1); RBC 2.43 mil/uL (4.20-5.00); RDW-CV 20.6 % (10.5-14.5); WBC 4.2 thou/uL (4.0-11.0)
[2017-09-13 04:28] LABS: CALCIUM 8.9 mg/dL (8.5-10.1); CREATININE 2.7 mg/dL (0.6-1.3); MAGNESIUM 1.7 mg/dL (1.8-2.4); POTASSIUM 4.7 mmol/L (3.5-5.1)
[2017-09-13 07:57] VITALS: BP 120/80
[2017-09-13] MEDS ORDERED: METAMUCIL1 EAC1 PO (11:52)
[2017-09-13] MEDS ORDERED: FLORANEX TABLE1 EACH PO (11:55)
[2017-09-13 15:39] VITALS: BP 120/80
[2017-09-13] MEDS ORDERED: LASIX 20 MG TAB20 MG PO (16:12)
[2017-09-13 16:17] VITALS: BP 120/80
[2017-09-13 17:30] VITALS: BP 120/80
--- NOTE | 2017-09-26 12:17 | D ---
[facility] [address] [place] [address] DISCHARGE SUMMARY Name: ETIENNE SPARKS Mathew Room: [address] IN M.R.#: [id number] Admission: 08/25/17 Attend Phys: Monique Nash DO Discharge: 09/13/17 Date of : 32 Report #: [id number] THIS REPORT FOR: //name// CC: TEODORO Nash DATE OF SERVICE: 09/13/2017 DISCHARGE DIAGNOSES: Encephalopathy with debility and alterations in activities of daily living. DISCHARGE DISPOSITION: To home with home health PT, OT, nursing and case management. She will follow up with her primary care physician within one week. Notifications for physician were given. She will maintain a regular diet. She has fall precautions. MEDICATIONS: Reviewed and reconciled by myself and are available in the [facility]. Prescriptions were given for Eliquis for one month, furosemide for one month. DISCHARGE PHYSICAL EXAMINATION: GENERAL: Alert, oriented, no apparent distress. VITAL SIGNS: Reviewed and are stable. HEENT: Head atraumatic, normocephalic. Pupils equal, round, reactive. ABDOMEN: Soft, nontender, nondistended. SKIN: Warm and dry. No rashes or lesions noted. <ELECTRONICALLY SIGNED> By: Monique Nash DO 09/26/17 1217 1552 [id number] Nash DO /nt
--- NOTE | 2017-10-19 11:20 | H ---
[place] [address] HISTORY AND PHYSICAL Name: ETIENNE SPARKS Room: [address] IN .R.#: [id number] Admission: 08/25/17 Attend Phys: Monique Nash, Discharge: 09/13/17 Date of : 32 Report #: [id number] THIS REPORT FOR: //name// CC: TEODORO Nash DATE OF SERVICE: 08/25/2017 HISTORY OF PRESENT ILLNESS: This is an 86-year-old female known from previous consultation who presented to the emergency room on 08/16/2017 with shortness of air, dizziness, nausea, vomiting, diarrhea and abdominal pain. She had been discharged 2 days prior with pneumonia and CHF. She also has a history of nonalcoholic cirrhosis, chronic kidney disease. She was fluid overloaded. She had bilateral pleural effusions. She had thoracentesis and cultures came back with gram-positive cocci. ID has been treating and following. She has been participating in therapies. She does have needs in physical and occupational therapy as well as speech and language pathology for both cognition and also swallow. She is on mechanical soft diet. Previous level of function was modified independent to independent with activities of daily living. Current level of function is minimum to moderate assistance depending on therapy, activity and time of day and otic-gq-ktpxcnds impairment of comprehension, expression, social interaction, problem solving and memory with also some dysphagia. No significant changes since the preadmission screening. Estimated length of stay is 12-14 days with discharge disposition to the home setting where she does have a supportive family, a daughter who can provide supervision and assistance. PAST MEDICAL HISTORY: Hypertension, hyperlipidemia, chronic kidney disease, DVT, UTI, anemia, nonalcoholic cirrhosis, bradycardia, depression, insomnia, macular degeneration, hyperkalemia. She is hard of hearing. Vitamin deficiency, esophageal varices followed by GI. PAST SURGICAL HISTORY: Thrombocytopenia, pacemaker placement, gastric bypass and a right total hip arthroplasty post-fracture. MEDICATIONS: Reviewed and reconciled by myself and are available in the MAR. ALLERGIES: To ASPIRIN, CELECOXIB IODINE, NSAIDs, QUINOLONES, ROFECOXIB, SHELLFISH and TAPE. SOCIAL HISTORY: Unchanged from consultation. FAMILY HISTORY: Unchanged from consultation. REVIEW OF SYSTEMS: A 14-point review of systems is done today, is negative except as mentioned in the HPI, specifically no fever, chest pain, [place] [address] HISTORY AND PHYSICAL Name: ETIENNE SPARKS Room: [address]#: [id number] Admission: 08/25/17 Attend Phys: Monique Nash, DO Discharge: 09/13/17 Date of : 32 Report #: [id number] breath, abdominal pain or distention. Skin is warm and dry. No rashes or lesions noted. PHYSICAL EXAMINATION: GENERAL: Alert, oriented, no apparent distress. VITAL SIGNS: Reviewed and are stable. HEENT: Head: Atraumatic, normocephalic. Pupils are equal, round, reactive. ABDOMEN: Soft, nontender, nondistended. She does wear dentures. MUSCULOSKELETAL: No clubbing, cyanosis or edema. NEUROLOGIC: Cranial nerves 2-12 are grossly intact with no focal neuro deficits, 5/5 strength in the bilateral upper and lower extremities. SKIN: Warm and dry. No rashes or lesions noted. ASSESSMENT: 1. Status post acute hospitalization for encephalopathy with recent sepsis, known pleural effusions with gram-positive cocci. 2. Multiple medical comorbidities requiring daily medical care. 3. Alterations in mobility and debility as well as cognition. PLAN: 1. Admission to inpatient rehabilitation. 2. PT, OT, speech, language, case management, nursing and HIMS to make evaluations and recommendations. 3. We will team her weekly and plan of care is pending. 4. Add Provigil and SSRI to daily medical regimen. <ELECTRONICALLY SIGNED> By: Monique Nash DO 10/19/17 1120 1312 [id number] Nash DO /nt
--- NOTE | 2017-10-19 11:20 | PLAN ---
[address] [address] REHAB UNIT PLAN OF CARE Name: ETIENNE SPARKS Mathew Room: [address] IN [facility].#: [id number] Admission: 08/25/17 Attend Phys: Monique Nash, Discharge: 09/13/17 Date of : 32 Report #: [id number] THIS REPORT FOR: //name// CC: TEODORO Nash This is an 86-year-old female admitted to inpatient rehabilitation to facilitate safe discharge home, status post acute hospitalization for encephalopathy with known sepsis from bilateral pleural effusions with gram-positive cocci recently on IV antibiotics. She also has esophageal varices and dysphagia with mechanical altered diet. She has been participating with physical and occupational therapy as well as speech language pathology. MEDICAL PROGNOSIS: Good. REHABILITATION PROGNOSIS: Good. Estimated length of stay is 12-14 days with discharge disposition to the home setting where she has supportive family including her daughter and an accessible house. Previous level of function was modified independent to independent with activities of daily living. Current level of function is minimum to moderate assistance with physical and occupational therapies and zetg-af-fvjiiebo impairment of comprehension, expression, social interaction and memory. She also has trouble with dysphagia. Physical therapy will see the patient 60-90 minutes per day, 5 days per week, working on upper and lower body strength, balance, coordination, navigation. Occupational therapy will work with the patient 60-90 minutes per day, 5 days per week, working on upper and lower body strength, balance, coordination, navigation, bathing, dressing, and toileting. Speech and language pathology will work with the patient 60-90 minutes per day working on comprehension, expression, memory, problem solving and social interaction as well as improvement in her swallow. This is an overall plan of care, may change from time to time. We will team weekly and make changes to the plan of care as needed. <ELECTRONICALLY SIGNED> By: Monique Nash DO 10/19/17 1120 1314 [id number] Nash DO /nt
== END 2017-09-13 17:30 | disposition home health service (06) | DRG 70 ==
LOC: M.REH 13:12
PROVIDERS: Family Medicine; Internal Medicine; ADMIT Physical Medicine & Rehabilitation
DX: G93.40 Encephalopathy, unspecified (principal); A41.9 Sepsis, unspecified organism; J69.0 Pneumonitis due to inhalation of food and vomit; J90 Pleural effusion, not elsewhere classified; I85.00 Esophageal varices without bleeding; I13.0 Hypertensive heart and chronic kidney disease with heart failure and stage 1 through stage 4 chronic kidney disease, or unspecified chronic kidney disease; N18.4 Chronic kidney disease, stage 4 (severe); R13.10 Dysphagia, unspecified; I50.9 Heart failure, unspecified; K74.60 Unspecified cirrhosis of liver; E87.70 Fluid overload, unspecified; E78.5 Hyperlipidemia, unspecified; D64.9 Anemia, unspecified; F32.9 Major depressive disorder, single episode, unspecified; Z96.641 Presence of right artificial hip joint; M81.0 Age-related osteoporosis without current pathological fracture; D69.6 Thrombocytopenia, unspecified; R00.1 Bradycardia, unspecified; Z87.440 Personal history of urinary (tract) infections; Z86.718 Personal history of other venous thrombosis and embolism; Z79.01 Long term (current) use of anticoagulants; Z95.0 Presence of cardiac pacemaker; Z87.81 Personal history of (healed) traumatic fracture; Z98.84 Bariatric surgery status; Z88.8 Allergy status to other drugs, medicaments and biological substances; Z88.6 Allergy status to analgesic agent; Z91.041 Radiographic dye allergy status; Z91.013 Allergy to seafood; G47.00 Insomnia, unspecified; Z91.048 Other nonmedicinal substance allergy status; Z86.010 Personal history of colon polyps; R41.89 Other symptoms and signs involving cognitive functions and awareness; R26.9 Unspecified abnormalities of gait and mobility; E87.5 Hyperkalemia

== ENCOUNTER 2017-09-23 20:55 | Emergency (ER) | payer OTHER ==
[~2017-09-23] VITALS: Ht 149.9 cm; Wt 65.8 kg
[~2017-09-23 20:55] MED LIST changes: +FLORANEX TABLE1 EACH PO; +METAMUCIL1 EAC1 PO
[2017-09-23] MEDS ORDERED: TYLENOL325 MG PO (21:13)
[2017-09-23] MEDS ORDERED: LOPERAMIDE 2 MG2 M1 PO (21:13)
[2017-09-24 00:02] VITALS: BP 123/41
== END 2017-09-24 00:03 | disposition home or self-care (01) ==
LOC: M.ERS 20:55
DX: I82.493 Acute embolism and thrombosis of other specified deep vein of lower extremity, bilateral (principal); I12.9 Hypertensive chronic kidney disease with stage 1 through stage 4 chronic kidney disease, or unspecified chronic kidney disease; N18.3 Chronic kidney disease, stage 3 (moderate); F32.9 Major depressive disorder, single episode, unspecified; Z88.8 Allergy status to other drugs, medicaments and biological substances; Z88.6 Allergy status to analgesic agent; Z91.041 Radiographic dye allergy status; Z91.013 Allergy to seafood; Z91.018 Allergy to other foods

== ENCOUNTER → 2017-10-14 | Outpatient (CLI) | payer OTHER, MEDICAID ==
[~2017-10-14] MED LIST changes: +ASPIR 8181 MG PO; +B12INJ PO; +BACTRIM DS TAB1 EAC1 PO; +BACTRIM DS TAB1 EACH PO; +BIOTIN5000 MCG PO; +LOPERAMIDE 2 MG2 M1 PO; +NORCO 5-325 TA1 EACH PO; +SODIUM BICARBO650 M3 PO; +TYLENOL325 MG PO; +UNICOMPLEX M TA1 TA1 PO
[2017-10-14 12:10] LABS: HEMATOCRIT 29.6 % (37.0-47.0); HEMOGLOBIN 9.6 gm/dL (12.0-15.0); MCH 32.7 pg (26.0-34.0); MCHC 32.5 g/dL (28.0-37.0); MCV 100.7 fL (80.0-100.0); MPV 8.2 fl. (7.2-11.1); RBC 2.94 mil/uL (4.20-5.00); RDW-CV 17.9 % (10.5-14.5); WBC 4.3 thou/uL (4.0-11.0)
[2017-10-14 12:22] LABS: INR 1.2; PROTIME 11.7 Seconds (9.20-11.50)
[2017-10-14 12:36] LABS: CALCIUM 8.8 mg/dL (8.5-10.1); CREATININE 2.8 mg/dL (0.6-1.3); POTASSIUM 4.5 mmol/L (3.5-5.1); TOTAL BILIRUBIN 0.2 mg/dL (<0.1-1.0); TOTAL PROTEIN 6.6 g/dL (6.4-8.2)
[2017-10-14 12:44] LABS: % SATURATION 24 % (20-39); IRON 69 ug/dL (50-175)
== END ==
LOC: M.ULTRA 10:30 → M.LAB 10:53
PROVIDERS: Nurse Practitioner Family
DX: N28.1 Cyst of kidney, acquired (principal); K74.60 Unspecified cirrhosis of liver; J90 Pleural effusion, not elsewhere classified; K55.059 Acute (reversible) ischemia of intestine, part and extent unspecified; I50.9 Heart failure, unspecified; N18.9 Chronic kidney disease, unspecified

== ENCOUNTER 2017-11-02 13:14 | Inpatient (IN) | payer OTHER, MEDICAID ==
[~2017-11-02] VITALS: Ht 149.9 cm; Wt 64.0 kg
[~2017-11-02 13:14] MED LIST changes: -ASPIR 8181 MG PO; -B12INJ PO; -BACTRIM DS TAB1 EAC1 PO; -BACTRIM DS TAB1 EACH PO; -BIOTIN5000 MCG PO; -NORCO 5-325 TA1 EACH PO; -SODIUM BICARBO650 M3 PO; -UNICOMPLEX M TA1 TA1 PO
[2017-11-02 13:15] VITALS: BP 104/35
[2017-11-02] MEDS ORDERED: ASPIR 8181 MG PO (13:30)
[2017-11-02] MEDS ORDERED: UNICOMPLEX M TA1 TA1 PO (13:36)
[2017-11-02] MEDS ORDERED: BACTRIM DS TAB1 EAC1 PO (13:38)
[2017-11-02] MEDS ORDERED: B12INJ PO (13:39)
[2017-11-02 13:46] LABS: ABSOLUTE EOSINOPHILS 0.1 thou/uL (0.0-0.7); ABSOLUTE LYMPHOCYTES 0.9 thou/uL (0.8-5.3); ABSOLUTE MONOCYTES 0.3 thou/uL (0.0-1.2); ABSOLUTE NEUTROPHILS 2.5 thou/uL (1.6-8.1); BASOPHILS 0.7 %; EOSINOPHILS 1.5 %; HEMATOCRIT 29.6 % (37.0-47.0); HEMOGLOBIN 9.5 gm/dL (12.0-15.0); LYMPHOCYTES 23.6 %; MCH 33.3 pg (26.0-34.0); MCHC 32.2 g/dL (28.0-37.0); MCV 103.6 fL (80.0-100.0); MONOCYTES 6.9 %; MPV 8.2 fl. (7.2-11.1); NUCLEATED RBCS 0 /100WBC; PLATELET COUNT* 130 thou/uL (150-400); POLYS 67.3 %; RBC 2.86 mil/uL (4.20-5.00); RDW-CV 17.7 % (10.5-14.5); WBC 3.8 thou/uL (4.0-11.0)
[2017-11-02 13:52] LABS: CALCIUM 8.3 mg/dL (8.5-10.1); CREATININE 4.4 mg/dL (0.6-1.3); POTASSIUM 5.1 mmol/L (3.5-5.1)
[2017-11-02 13:53] LABS: APTT 20.8 Seconds (25.0-31.3); INR 1.2; PROTIME 11.2 Seconds (9.20-11.50)
[2017-11-02 13:56] LABS: ALBUMIN 3.1 g/dL (3.4-5.0); TOTAL BILIRUBIN 0.2 mg/dL (<0.1-1.0); TOTAL PROTEIN 6.1 g/dL (6.4-8.2)
[2017-11-02 16:01] LABS: URINE BILIRUBIN NEGATIVE (Negative); URINE BLOOD NEGATIVE (Negative); URINE CLARITY CLEAR; URINE COLOR YELLOW; URINE GLUCOSE-RANDOM NEGATIVE (Negative); URINE KETONES NEGATIVE (Negative); URINE LEUKOCYTES-REFLEX NEGATIVE (Negative); URINE NITRITE-REFLEX NEGATIVE (Negative); URINE PROTEIN TRACE (Negative); URINE UROBILINOGEN 0.2 E.U./dl (0.2-1.0)
[2017-11-02 17:05] VITALS: BP 105/42
[2017-11-02 17:23] VITALS: BP 129/35
--- NOTE | 2017-11-02 17:39 | EKG ---
[place] [address] ELECTROCARDIOGRAM REPORT Name: ETIENNE SPARKS Room: [address] ADM IN .R.#: [id number] Admission: 11/02/17 Attend Phys: Shay Hendrickson MD Discharge: Date of : 32 Report #: [id number] THIS REPORT FOR: //name// [facility] ED Test Date: 2017-11-02 Test Time: 13:21:13 Pat Name: ETIENNE SPARKS Department: Room: [facility] Gender: Test Engineering Intern: Evy MCCALLUM : 1930 Requested By: Franklin Askew Order Number: [id number] : Tyler Smith Measurements Intervals [place] Rate: 60 P: [place]: 264 QRS: 7 QRSD: 98 T: 54 QT: 432 QTc: 432 Interpretive Statements Atrial-paced rhythm Low voltage, extremity leads Compared to ECG 08/16/2017 11:51:22 Sinus rhythm no longer present Electronically Signed On 11-02-2017 17:39:21 CDT by Tyler Smith [email or web address] <ELECTRONICALLY SIGNED> By: Tyler Smith MD, [facility] 11/02/17 1739 1321 1321 Tyler Smith MD, [facility] /EPI
--- NOTE | 2017-11-02 18:31 | NUR ---
PT ADMITTED TO UNIT AROUND 1700 PT IS ALERT AND ORIENTED X 4 PT STATES HAS SLIGHT PAIN IN HEAD FROM WHERE PT FELL PT DENIES SOA. PT IS UP WITH ASSIST X 1 PT IS A FALL RISK BED ALARM IS ON. PT HAS PACEMAKER AND IS AV PACED ON THE MONITOR, PT IS PLEASANT AND COOPERATIVE, PT HAS FLUIDS RUNNING NEPHROLOGY CONSULT ORDERED TALKED WITH COUNCILMAN WHO WILL SEE PT IN THE AM, WILL CONTINUE TO MONITOR
[2017-11-02 20:00] VITALS: BP 119/54
[2017-11-03] VITALS (9 sets, daily range): BP systolic 111–139; BP diastolic 40–56
[2017-11-03 04:49] LABS: CALCIUM 7.8 mg/dL (8.5-10.1); CREATININE 4.1 mg/dL (0.6-1.3); MAGNESIUM 1.9 mg/dL (1.8-2.4)
--- NOTE | 2017-11-03 05:40 | NUR ---
PATIENT SLEPT MOST OF THE NIGHT. NEW IV WAS STARTED CHARTED. IV FLUIDS CONTINUE TO INFUSE AT 100ML/HR. PATIENT WAS GIVEN TYLENOL ONCE FOR PAIN. WILL CONTINUE TO MONITOR.
[2017-11-03 09:12] LABS: URINE POTASSIUM-RANDOM 9.7 mmol/L
--- NOTE | 2017-11-03 14:26 | NUR ---
Pt is A&O. Pt resides at [facility], moved in about 3 weeks ago. [facility] provides meals and assistance as needed. Pt uses a walker for mobility. Hx of [facility]. Hx of [facility] acute rehab. Supportive family. Goal is back to [facility] at de. Followin for disposition.
[2017-11-03 16:47] LABS: BE -15.1 mmol/L (-2 to +3); PCO2 28.6 mmHg (35.0-45.0)
[2017-11-03 16:50] LABS: HCO3 11.3 mmol/L (22.0-26.0); pH 7.216 (7.340-7.450)
--- NOTE | 2017-11-03 17:13 | NUR ---
ASSUMED PT CARE AT 0700 PT IS ALERT AND ORIENTED X 4 PT DENIES PAIN OR SOA ON RA, PT IS UP WITH SBA PT IS A FALL RISK BED ALARM IS ON, OBTAINED ORTHOSTATIC BLOOD PRESSRUE, PT IS APACED ON THE MONITOR PT HAS PACEMAKER, PT STARTED ON FLUIDS WITH SODIUM BICARB, ABG'S DONE PAGED PHYSICIAN WITH REPORT, PT URINATING WITHOUT ISSUE, WILL CONTINUE TO MONITOR
[2017-11-04 00:01] VITALS: BP 114/30
[2017-11-04 04:00] VITALS: BP 120/68
--- NOTE | 2017-11-04 04:36 | NUR ---
ASSUMED PT CARE AT 1915. NURSING ASSESSMENT COMPLETED. ELECTRICAL INSTRUMENTATION TECHNICIAN IN PLACE, PT TRACING A PACED ON MONITOR. HOURLY ROUNDING COMPLETED, HIGH FALL PRECAUTIONS IN PLACE. CALL LIGHT WITHIN REACH.
[2017-11-04 05:54] LABS: ALBUMIN 2.8 g/dL (3.4-5.0); CALCIUM 7.3 mg/dL (8.5-10.1); CREATININE 3.5 mg/dL (0.6-1.3); MAGNESIUM 1.7 mg/dL (1.8-2.4); PHOSPHORUS* 6.3 mg/dL (2.5-4.9); POTASSIUM 4.2 mmol/L (3.5-5.1)
[2017-11-04 08:00] VITALS: BP 97/62
[2017-11-04 08:45] VITALS: BP 112/47
[2017-11-04 12:17] VITALS: BP 124/47
[2017-11-04 12:39] LABS: BE -12.2 mmol/L (-2 to +3); HCO3 13.7 mmol/L (22.0-26.0); PCO2 31.3 mmHg (35.0-45.0); PO2 103.3 mmHg (75.0-100.0)
[2017-11-04 12:40] LABS: pH 7.259 (7.340-7.450)
--- NOTE | 2017-11-04 14:32 | NUR ---
When Pt discharges back to [facility], Pt wants [facility]
[2017-11-04 15:10] LABS: KAPPA FREE LIGHT CHAINS 125.4 mg/L (3.3-19.4); LAMBDA FREE LIGHT CHAINS 81.1 mg/L (5.7-26.3)
[2017-11-04 16:47] VITALS: BP 128/53
--- NOTE | 2017-11-04 19:55 | NUR ---
ASSUMED PT CARE AT 0730, FULL ASSESMENT DONE CHARTED. PT A/O X4, C/O PAIN IN HANDS/ARMS, DOES NOT WANT PAIN MEDS AT THIS TIME. BP SOFT, PT ASYMPTOMATIC, ALL OTHER VSS, PT REPORTS LOOSE STOOLS TODAY, SHE HAS A HX OF DIARRHEA, SHE STATES THAT THIS EVENING SHE HAD BRIGHT RED BLOOD WHEN WIPING. SHE IS ENCOURAGED TO NOTIFY NURSING STAFF NEXT TIME SHE GOES SO IT CAN BE ASSESED. PT VERBALIZED UNDERSTANDING. MAGNESIUM BEING REPLACED TODAY. REPEAT ABG'S DONE, PT USING CALL [facility] APPROPRIALTY. FALL PRECAUTIONS IN PLACE. REPORT GIVEN TO NINO FISHER.
[2017-11-05] VITALS: BP 138/47
[2017-11-05 04:00] VITALS: BP 115/40
--- NOTE | 2017-11-05 04:14 | NUR ---
ASSUMED PT CARE AT 1915. NURSING ASSESSMENT COMPLETED AT START OF SHIFT. PT VOICED NO CONCERNS, PRODUCT SUPPORT MANAGER IN PLACE TRACING A PACED THIS SHIFT. HOURLY ROUNDING COMPLETED, CALL LIGHT WITHIN REACH.
--- NOTE | 2017-11-05 05:39 | NUR ---
PT HAD SEVERAL EPISODES OF DIARRHEA THIS SHIFT, SMALL AMOUNT OF BRIGHT BLOOD OBSERVED WITH STOOLS.
[2017-11-05 05:44] LABS: HEMATOCRIT 27.4 % (37.0-47.0); HEMOGLOBIN 8.9 gm/dL (12.0-15.0); MCH 33.1 pg (26.0-34.0); MCHC 32.5 g/dL (28.0-37.0); MCV 101.8 fL (80.0-100.0); MPV 8.3 fl. (7.2-11.1); RBC 2.69 mil/uL (4.20-5.00); RDW-CV 17.6 % (10.5-14.5); WBC 4.3 thou/uL (4.0-11.0)
[2017-11-05 05:53] LABS: ALBUMIN 2.7 g/dL (3.4-5.0); CALCIUM 8.1 mg/dL (8.5-10.1); MAGNESIUM 1.7 mg/dL (1.8-2.4); PHOSPHORUS* 5.4 mg/dL (2.5-4.9); POTASSIUM 4.8 mmol/L (3.5-5.1); TOTAL BILIRUBIN 0.2 mg/dL (<0.1-1.0); TOTAL PROTEIN 5.6 g/dL (6.4-8.2)
[2017-11-05 08:00] VITALS: BP 121/40
--- NOTE | 2017-11-05 10:23 | NUR ---
ASSUMED PT CARE AT 0730, FULL ASSESMENT DONE CHARTED. PT OX4, DROWSY, RESTING IN BED. VSS, A PACED ON THE MONITOR. PT WANTING TO GO HOME SOON. DENIES PAIN. FALL PRECAUTIONS IN PLACE. WILL CONTINUE WITH PLAN OF CARE.
[2017-11-05 12:17] VITALS: BP 97/64
[2017-11-05 15:36] VITALS: BP 126/53
[2017-11-05 20:00] VITALS: BP 121/57
[2017-11-06] VITALS: BP 133/52
[2017-11-06 04:00] VITALS: BP 118/38
[2017-11-06 04:48] LABS: HEMOGLOBIN 8.2 gm/dL (12.0-15.0); MCH 33.5 pg (26.0-34.0); MCHC 32.7 g/dL (28.0-37.0); MCV 102.5 fL (80.0-100.0); MPV 8.3 fl. (7.2-11.1); RBC 2.44 mil/uL (4.20-5.00); RDW-CV 18.1 % (10.5-14.5); WBC 3.7 thou/uL (4.0-11.0)
[2017-11-06 05:07] LABS: CALCIUM 8.3 mg/dL (8.5-10.1); POTASSIUM 4.5 mmol/L (3.5-5.1)
--- NOTE | 2017-11-06 05:31 | NUR ---
ASSUMED PT CARE AT 1930. NURSING ASSESSMENT COMPLETED AT START OF SHIFT. PT VOICED NO COMPLAINTS THIS SHIFT. CONTINUES ON BREAKER ENGINEER TRACING SR/AV PACED THIS SHIFT. FALL PRECAUTIONS IN PLACE. CALL LIGHT WITHIN REACH. HOURLY ROUNDING COMPLTED.
[2017-11-06 09:00] VITALS: BP 126/38
--- NOTE | 2017-11-06 11:11 | CON ---
[address] [address] CONSULTATION Name: ETIENNE SPARKS Mathew Room: [address] IN M.R.#: [id number] Admission: 11/02/17 Attend Phys: Shay Hendrickson MD Discharge: Date of : 32 Report #: [id number] THIS REPORT FOR: //name// CC: Shay Carter DATE OF SERVICE: 11/03/2017 Nephrology Consultation CONSULTING PHYSICIAN: Shay Hendrickson MD REASON FOR CONSULTATION: Acute kidney injury. HISTORY OF PRESENT ILLNESS: An 87-year-old female with history of chronic kidney disease stage 4 and cryptogenic cirrhosis, who was admitted with worsening kidney function and concerns for volume depletion. She has had some chronic diarrhea for weeks. Denies any NSAIDs. Denies any vomiting. Bactrim is listed as one of her outpatient medications, but she does not recall the details of why she is on this medication. She is feeling fine right now, has no complaints. REVIEW OF SYSTEMS: Constitutional, psych, heme, eyes, ENT, respiratory, cardiac, GI, , and endocrine, all negative except as documented above. PAST MEDICAL HISTORY: Cryptogenic cirrhosis, history of chronic kidney disease stage 4, history of CHF, history of DVT, depression, right hip replacement. SOCIAL HISTORY: No tobacco, no alcohol. FAMILY HISTORY: Not apparent in this 87-year-old female. CURRENT MEDICATIONS: Reviewed. PHYSICAL EXAMINATION: VITAL SIGNS: Blood pressure 126/45, pulse 50, respiration 18, temperature 36.6. GENERAL: No acute distress. EYES: Extraocular movements intact. EARS: Externally normal. CARDIOVASCULAR: Regular rate. LUNGS: No crackles. ABDOMEN: Soft. MUSCULOSKELETAL: Nontender. PSYCHIATRIC: Awake, alert. LABORATORY DATA: White cell count 3.8, hemoglobin 9.5, platelets 130. Sodium [facility] [address] [place] [address] CONSULTATION Name: ETIENNE SPARKS Mathew Room: [address] IN [facility]#: [id number] Admission: 11/02/17 Attend Phys: Shay Hendrickson MD Discharge: Date of : 32 Report #: [id number] 142, potassium 5, chloride 117, bicarbonate 12, BUN 61, creatinine 4.1, glucose 81, calcium 7.8, magnesium 1.9. ASSESSMENT: 1. Acute kidney injury with admission creatinine of 4.4. On 10/14, creatinine was 2.8. Urinalysis noted. Bactrim is listed as this is one of her outpatient medications. She also has chronic diarrhea. 2. Metabolic acidosis with a possible component of respiratory alkalosis, CO2 of 12 on 11/03. 3. Proteinuria. Urine protein creatinine ratio of 1.2. 4. Cryptogenic cirrhosis. 5. History of deep venous thrombosis. 6. History of IgG lambda monoclonal protein. Free light chain was okay. 7. Hypoalbuminemia, albumin 3.1. 8. Chronic diarrhea. 9. Chronic kidney disease, likely stage 4. On 10/14, creatinine was 2.8. PLAN: 1. Check kidney ultrasound. 2. Check bladder scan. 3. Monitor Is and Os. 4. On IV fluids and sodium bicarbonate, continue. 5. Continue magnesium, aluminum hydroxide. 6. Check protein electrophoresis, immunofixation, free light chain assay. 7. Check venous blood gas. 8. Creatinine is trending down. I will not administer albumin at this time. We will monitor closely. 9. She does have cryptogenic cirrhosis and pancytopenia with chronic kidney disease. She is currently listed as a full code. Going forward, may wish to discuss in detail with the patient and family whether this is where she truly wants given her multiple comorbid conditions. Thank you for requesting my opinion in the care and management of this patient. <ELECTRONICALLY SIGNED> By: Tara West MD 11/06/17 1111 1648 [id number] West MD /nt
[2017-11-06 14:09] VITALS: BP 149/65
[2017-11-06 15:50] VITALS: BP 120/46
[2017-11-06 20:00] VITALS: BP 132/46
[2017-11-07] VITALS (8 sets, daily range): BP systolic 112–135; BP diastolic 40–65
--- NOTE | 2017-11-07 05:25 | NUR ---
ASSUMED PT CARE AT 1930. NURSING ASSESSMENT COMPLETED AT START OF SHIFT. PT VOICED NO CONCERNS. DOG OBEDIENCE INSTRUCTOR IN PLACE, TRACING SR/A PACED THIS SHIFT. HOURLY ROUNDING COMPLETED, CALL LIGHT WITHIN REACH. NO FALLS THIS SHIFT.
--- NOTE | 2017-11-07 09:32 | NUR ---
ASSUMED PT CARE AT 0730, FULL ASSESMENT DONE CHARTED.PT A/O X4, FORGETFUL AT TIMES. PT UP TO CHAIR FOR BREAKFATST, C/O HEADACHE, TYLENOL GIVEN. PTS BP SOFT, ALL OTHER VSS, A PACED ON THE MONITOR. FALL PRECAUTIONS IN PLACE, CALL LIGHT IN REACH. WILL CONTINUE WITH PLAN OF CARE.
--- NOTE | 2017-11-07 14:21 | NUR ---
Pt discharging back to [facility] today, faxed dc orders. Chart copied. Nurse report number provided [id number]. Dtr to transport
[2017-11-07 21:06] LABS: M-SPIKE 0.2 g/dL (Not Observed)
--- NOTE | 2017-11-25 09:43 | CON ---
[address] [address] CONSULTATION Name: ETIENNE SPARKS Room: [address] IN M.R.#: [id number] Admission: 11/02/17 Attend Phys: Shay Hendrickson MD Discharge: 11/07/17 Date of : 32 Report #: [id number] THIS REPORT FOR: //name// CC: Shay Brittpa DICTATED BY: Saad Hamilton DO DATE OF SERVICE: 11/06/2017 CHIEF COMPLAINT: Fall on 11/02/2017. HISTORY OF PRESENT ILLNESS: The patient is a pleasant 87-year-old female with a past medical history of stage 4 chronic kidney disease, who presented to the Emergency Department at [facility] on 11/02/2017 after a fall. She landed on her forehead and sustained a contusion to the forehead. While she was in the Emergency Department, due to the nature of the fall, x-rays were taken of the C-spine as well as the pelvis. The pelvic x-rays demonstrated a questionable fracture line near the lesser trochanter of the right femur. She denies any new hip pain. She underwent hip replacement surgery in 2003 and admits to some mild chronic hip pain since the time of that surgery. She states that she is not having any new hip pain with weightbearing or with motion of the hip since the time of her fall on 11/02/2017. ALLERGIES: NSAIDS, QUINOLONES, IODINE, ASPIRIN. PAST MEDICAL HISTORY: Chronic kidney disease, bilateral leg edema, congestive heart failure. Remote history of DVT. SOCIAL HISTORY: No tobacco, no alcohol. FAMILY HISTORY: Noncontributory. CURRENT MEDICATIONS: Reviewed. REVIEW OF SYSTEMS: Denies hip pain. Does admit to headache and chronic kidney disease. A 12-point review of systems otherwise negative at this time. PHYSICAL EXAMINATION: VITAL SIGNS: Temperature 36.9, pulse 60, respirations 17, blood pressure 118/38. GENERAL: Alert and oriented, no acute distress. HEENT: Head is atraumatic, normocephalic. Moist mucous membranes. NECK: Supple, full range of motion. RESPIRATORY: Respirations are nonlabored. CARDIOVASCULAR: Normal Peripheral pulses [place] [address] CONSULTATION Name: ETIENNE SPARKS Room: [address]#: [id number] Admission: 11/02/17 Attend Phys: Shay Hendrickson MD Discharge: 11/07/17 Date of : 32 Report #: [id number] GASTROINTESTINAL: Abdomen is soft, nontender. MUSCULOSKELETAL: The patient does admit to some mild hip pain with deep flexion and internal and external rotation of the hip. She states that this seems normal for her baseline. There is no pain with log roll. She denies any pain with ambulating. She does ambulate with a walker. She moves the ankle and toes distally freely with no restrictions. Sensation is intact throughout. Compartments are soft and nontender. Negative Homans sign. PSYCHIATRIC: Awake and alert. NEUROLOGIC: Normal sensation, normal motor. ASSESSMENT: This is an 87-year-old female with a mechanical fall on 11/02/2017. PLAN: AP pelvis x-ray was reviewed, which was obtained in the ER. There is a subtle radiolucency noted at the base of the lesser trochanter that is questionable for a nondisplaced fracture. The patient is not, however, presenting with symptoms that would be consistent with a right hip fracture. She does not have any new onset of right hip pain. She does complain of some hip pain, but this appears to be chronic since the time of her surgery in 2003. The x-rays demonstrate a well-seated and intact hip prosthesis. We would recommend followup x-rays in about 2 weeks just to verify the images appear stable or nothing appears to be changing. The patient can continue to weightbear as tolerated with her walker and should follow up with us in 2 weeks. <ELECTRONICALLY SIGNED> By: Darrel Palafox DO 11/25/17 0943 0638 [id number] Palafox DO /brannon
== END 2017-11-07 17:42 | disposition home health service (06) | DRG 682 ==
LOC: M.ERS 13:14 → M.2W 14:47 → M.TBA-ER 14:47 → M.2W 17:09
PROVIDERS: Family Medicine; Internal Medicine Nephrology; ADMIT Internal Medicine
DX: N17.0 Acute kidney failure with tubular necrosis (principal); S72.001A Fracture of unspecified part of neck of right femur, initial encounter for closed fracture; S42.212A Unspecified displaced fracture of surgical neck of left humerus, initial encounter for closed fracture; E87.2 Acidosis; I13.0 Hypertensive heart and chronic kidney disease with heart failure and stage 1 through stage 4 chronic kidney disease, or unspecified chronic kidney disease; D61.818 Other pancytopenia; E44.1 Mild protein-calorie malnutrition; N18.4 Chronic kidney disease, stage 4 (severe); E86.9 Volume depletion, unspecified; M81.0 Age-related osteoporosis without current pathological fracture; F32.9 Major depressive disorder, single episode, unspecified; I50.9 Heart failure, unspecified; K74.69 Other cirrhosis of liver; E88.09 Other disorders of plasma-protein metabolism, not elsewhere classified; K52.9 Noninfective gastroenteritis and colitis, unspecified; S00.83XA Contusion of other part of head, initial encounter; G47.00 Insomnia, unspecified; I49.5 Sick sinus syndrome; Z96.641 Presence of right artificial hip joint; Z87.81 Personal history of (healed) traumatic fracture; Z88.8 Allergy status to other drugs, medicaments and biological substances; Z95.0 Presence of cardiac pacemaker; Z88.6 Allergy status to analgesic agent; Z91.041 Radiographic dye allergy status; Z91.013 Allergy to seafood; Z86.718 Personal history of other venous thrombosis and embolism; W01.0XXA Fall on same level from slipping, tripping and stumbling without subsequent striking against object, initial encounter; Y93.89 Activity, other specified; Y92.89 Other specified places as the place of occurrence of the external cause; Y99.8 Other external cause status

== ENCOUNTER 2017-12-05 10:22 | Emergency (ER) | payer OTHER, MEDICAID ==
[~2017-12-05] VITALS: Ht 149.9 cm; Wt 67.2 kg
[~2017-12-05 10:22] MED LIST changes: +ASPIR 8181 MG PO; +B12INJ PO; +BACTRIM DS TAB1 EAC1 PO; +UNICOMPLEX M TA1 TA1 PO
[2017-12-05] MEDS ORDERED: KEFLEX500 M1 PO (10:59)
[2017-12-05] MEDS ORDERED: NORCO 5-325 TA1 EACH PO (11:00)
[2017-12-05 11:26] LABS: ABSOLUTE EOSINOPHILS 0.2 thou/uL (0.0-0.7); ABSOLUTE LYMPHOCYTES 1.7 thou/uL (0.8-5.3); ABSOLUTE MONOCYTES 0.3 thou/uL (0.0-1.2); ABSOLUTE NEUTROPHILS 2.2 thou/uL (1.6-8.1); BASOPHILS 0.7 %; EOSINOPHILS 5.6 %; HEMATOCRIT 27.3 % (37.0-47.0); HEMOGLOBIN 8.5 gm/dL (12.0-15.0); LYMPHOCYTES 36.9 %; MCH 33.3 pg (26.0-34.0); MCHC 31.3 g/dL (28.0-37.0); MCV 106.4 fL (80.0-100.0); MONOCYTES 7.2 %; MPV 8.3 fl. (7.2-11.1); NUCLEATED RBCS 0 /100WBC; PLATELET COUNT* 119 thou/uL (150-400); POLYS 49.6 %; RBC 2.56 mil/uL (4.20-5.00); RDW-CV 18.2 % (10.5-14.5); WBC 4.5 thou/uL (4.0-11.0)
[2017-12-05 11:35] LABS: CALCIUM 7.9 mg/dL (8.5-10.1); CREATININE 4.2 mg/dL (0.6-1.3); POTASSIUM 5.3 mmol/L (3.5-5.1)
[2017-12-05 11:39] LABS: ALBUMIN 3.1 g/dL (3.4-5.0); TOTAL BILIRUBIN 0.2 mg/dL (<0.1-1.0); TOTAL PROTEIN 6.2 g/dL (6.4-8.2)
[2017-12-05 14:01] VITALS: BP 114/30
--- NOTE | 2017-12-05 17:08 | EKG ---
[place] [address] ELECTROCARDIOGRAM REPORT Name: ETIENNE SPARKS Room: [facility]#: [id number] Admission: 12/05/17 Attend Phys: Discharge: 12/05/17 Date of : 34 Report #: [id number] THIS REPORT FOR: //name// [facility] ED Test Date: 2017-12-05 Test Time: 12:40:08 Pat Name: ETIENNE SPARKS Department: Room: Gender: F Loan Review Manager: [place] : 1930 Requested By: Dez Schaefer Order Number: [id number] MD: Costa Alcantar Measurements Intervals [place] Rate: 61 P: [place]: 64 QRS: 39 QRSD: 95 T: 22 QT: 438 QTc: 442 Interpretive Statements Atrial and ventricular-paced rhythm Baseline wander in lead(s) II,III,aVR,aVL,aVF Compared to ECG 11/02/2017 13:21:13 ventricular paced beats noted Electronically Signed On 12-05-2017 17:08:02 CDT by Costa Alcantar [email or web address] <ELECTRONICALLY SIGNED> By: Costa Alcantar MD, [facility] 12/05/17 1708 1240 1240 Costa Alcantar MD, [facility] /EPI
== END 2017-12-05 14:02 | disposition home or self-care (01) ==
LOC: M.ERS 10:22
PROVIDERS: Emergency Medicine Emergency Medical Services
DX: R10.33 Periumbilical pain (principal); K74.60 Unspecified cirrhosis of liver; I12.9 Hypertensive chronic kidney disease with stage 1 through stage 4 chronic kidney disease, or unspecified chronic kidney disease; N18.4 Chronic kidney disease, stage 4 (severe); M81.0 Age-related osteoporosis without current pathological fracture; Z86.718 Personal history of other venous thrombosis and embolism; Z88.6 Allergy status to analgesic agent; Z88.8 Allergy status to other drugs, medicaments and biological substances; Z91.041 Radiographic dye allergy status; Z91.013 Allergy to seafood

== ENCOUNTER 2017-12-07 10:50 | Inpatient (IN) | payer OTHER, MEDICAID ==
[~2017-12-07] VITALS: Ht 149.9 cm; Wt 71.2 kg
[~2017-12-07 10:50] MED LIST changes: +NORCO 5-325 TA1 EACH PO
[2017-12-07 11:07] VITALS: BP 129/42
[2017-12-07 11:14] LABS: ABSOLUTE EOSINOPHILS 0.3 thou/uL (0.0-0.7); ABSOLUTE LYMPHOCYTES 1.5 thou/uL (0.8-5.3); ABSOLUTE MONOCYTES 0.3 thou/uL (0.0-1.2); ABSOLUTE NEUTROPHILS 2.2 thou/uL (1.6-8.1); BASOPHILS 0.6 %; EOSINOPHILS 7.9 %; HEMATOCRIT 25.9 % (37.0-47.0); HEMOGLOBIN 8.1 gm/dL (12.0-15.0); LYMPHOCYTES 33.7 %; MCH 33.8 pg (26.0-34.0); MCHC 31.2 g/dL (28.0-37.0); MCV 108.1 fL (80.0-100.0); MONOCYTES 7.6 %; MPV 7.6 fl. (7.2-11.1); NUCLEATED RBCS 0 /100WBC; PLATELET COUNT* 99 thou/uL (150-400); POLYS 50.2 %; RBC 2.39 mil/uL (4.20-5.00); RDW-CV 18.8 % (10.5-14.5); WBC 4.4 thou/uL (4.0-11.0)
[2017-12-07] MEDS ORDERED: BIOTIN5000 MCG PO (11:17)
[2017-12-07] MEDS ORDERED: BACTRIM DS TAB1 EACH PO (11:17)
[2017-12-07 11:23] LABS: APTT 31.2 Seconds (25.0-31.3); INR 1.2; PROTIME 12.7 Seconds (9.20-11.50)
[2017-12-07 11:24] LABS: ANION GAP 15 mmol/L (7-16); BUN 57 mg/dL (7-18); CALCIUM 7.6 mg/dL (8.5-10.1); CHLORIDE 117 mmol/L (98-107); CREATININE 3.9 mg/dL (0.6-1.3); GLUCOSE 98 mg/dL (70-99); POTASSIUM 5.2 mmol/L (3.5-5.1); SODIUM 142 mmol/L (136-145)
[2017-12-07 11:25] LABS: CO2 10 mmol/L (21-32)
[2017-12-07 11:31] LABS: ALBUMIN 3.1 g/dL (3.4-5.0); ALKALINE PHOSPHATASE 61 U/L (46-116); LIPASE 291 U/L (73-393); SGOT 18 U/L (15-37); SGPT 14 U/L (30-65); TOTAL BILIRUBIN 0.2 mg/dL (<0.1-1.0); TOTAL PROTEIN 6.3 g/dL (6.4-8.2); TROPONIN-I LEVEL <0.06 ng/mL (<0.06)
[2017-12-07 17:09] VITALS: BP 121/36
[2017-12-07 18:17] VITALS: BP 101/57
--- NOTE | 2017-12-07 18:59 | EKG ---
[place] [address] ELECTROCARDIOGRAM REPORT Name: ETIENNE SPARKS Room: [address] ADM IN [facility].#: [id number] Admission: 12/07/17 Attend Phys: Bassam Noe MD Discharge: Date of : 34 Report #: [id number] THIS REPORT FOR: //name// [facility] ED Test Date: 2017-12-07 Test Time: 11:06:19 Pat Name: ETIENNE SPARKS Department: Room: [facility] Gender: F Healthcare Technician: Evy WILLIAMSON : 1930 Requested By: Franklin Askew Order Number: [id number] MD: Costa Alcantar Measurements Intervals [place] Rate: 60 P: [place]: 76 QRS: 11 QRSD: 98 T: 37 QT: 423 QTc: 423 Interpretive Statements Atrial-paced rhythm Low voltage, extremity leads Compared to ECG 12/05/2017 12:40:08 no change Electronically Signed On 12-07-2017 18:59:04 CDT by Costa Alcantar [email or web address] <ELECTRONICALLY SIGNED> By: Costa Alcantar MD, [facility] 12/07/17 4869 1106 1106 Costa Alcantar MD, [facility] /EPI
[2017-12-07 19:50] VITALS: BP 116/42
[2017-12-08] VITALS: BP 123/43
[2017-12-08 04:09] VITALS: BP 114/42
[2017-12-08 04:30] LABS: ABSOLUTE EOSINOPHILS 0.3 thou/uL (0.0-0.7); ABSOLUTE LYMPHOCYTES 1.6 thou/uL (0.8-5.3); ABSOLUTE MONOCYTES 0.4 thou/uL (0.0-1.2); ABSOLUTE NEUTROPHILS 1.7 thou/uL (1.6-8.1); BASOPHILS 0.4 %; EOSINOPHILS 8.7 %; HEMATOCRIT 23.2 % (37.0-47.0); HEMOGLOBIN 7.3 gm/dL (12.0-15.0); LYMPHOCYTES 39.7 %; MCH 33.3 pg (26.0-34.0); MCHC 31.3 g/dL (28.0-37.0); MCV 106.4 fL (80.0-100.0); MONOCYTES 8.9 %; MPV 8.6 fl. (7.2-11.1); NUCLEATED RBCS 0 /100WBC; PLATELET COUNT* 86 thou/uL (150-400); POLYS 42.3 %; RBC 2.19 mil/uL (4.20-5.00); RDW-CV 18.3 % (10.5-14.5)
[2017-12-08 04:46] LABS: CALCIUM 7.3 mg/dL (8.5-10.1); CREATININE 3.5 mg/dL (0.6-1.3); POTASSIUM 5.3 mmol/L (3.5-5.1)
[2017-12-08 08:10] VITALS: BP 121/40
[2017-12-08 11:45] LABS: BF RBC <1000 /mm3
[2017-12-08 11:49] LABS: TOTAL CELL COUNT 141 /mm3
[2017-12-08 11:50] VITALS: BP 145/36
[2017-12-08 11:58] LABS: TOTAL VOLUME 755 ml
[2017-12-08 11:59] LABS: CLARITY CLEAR; COLOR AMBER
[2017-12-08 12:52] LABS: BF LYMPHOCYTES 61 %; BF MONOCYTES 30 %; BF POLYS 9 %; BF TISSUE 1 /100 WBC
[2017-12-08 12:58] LABS: SOURCE THORACENTESIS
[2017-12-08 16:00] VITALS: BP 115/39
[2017-12-08 19:15] VITALS: BP 134/42
[2017-12-09 01:05] VITALS: BP 115/44
[2017-12-09 04:00] VITALS: BP 107/32
[2017-12-09 04:52] LABS: ALBUMIN 2.8 g/dL (3.4-5.0); CALCIUM 7.7 mg/dL (8.5-10.1); CREATININE 3.4 mg/dL (0.6-1.3); POTASSIUM 5.2 mmol/L (3.5-5.1); TOTAL BILIRUBIN 0.2 mg/dL (<0.1-1.0); TOTAL PROTEIN 5.5 g/dL (6.4-8.2)
[2017-12-09 07:45] VITALS: BP 123/43
[2017-12-09 10:08] LABS: BODY FLUID AMYLASE 43 U/L (()); BODY FLUID LDH 43 IU/L (()); BODY FLUID PROTEIN 1.6 g/dL (())
[2017-12-09 12:10] VITALS: BP 114/38
--- NOTE | 2017-12-09 14:08 | PATH ---
[address] [address] PATHOLOGY RPT PROCEDURE Name: ETIENNE SPARKS Room: [address] IN [facility]#: [id number] Admission: 12/07/17 Date of : 34 Discharge: Report #: [id number] Path Case #: [id number] Note [facility] Accession Number: [id number] TESTS RESULT FLAG UNITS REF RANGE LAB Clinician Provided Cytology Information No. of containers..01 Other (Miscellaneous) Source: LEFT PLEURAL FLUID DIAGNOSIS: LEFT PLEURAL FLUID NEGATIVE FOR MALIGNANT CELLS. MESOTHELIAL CELLS AND INFLAMMATORY CELLS, PREDOMINANTLY CHRONIC. THIS INTERPRETATION INCLUDES EVALUATION OF A CELL BLOCK. Signed out by: 02 Ryan Colón MD, Pathologist NPI- [id number] Performed by: 01 Pablo Singh, Rn Observation ([facility]) Gross description: 01 31ML, YELLOW, CLOUDY /LCS FLAG LEGEND: L-Low Normal,H-High Normal,LL-Alert Low,HH-Alert High <-Panic Low,>-Panic High,A-Abnormal,AA-Critical Abnormal Performed at: [address] [place] [address] Hugo Maravilla MD, [address] [place] [address] [address] [facility], [place] [address] Ryan Colón MD, Performed at: [address], [place], [place] [id number] MD Hugo Maravilla MD Phone: [phone]
[2017-12-09 15:06] LABS: BODY FLUID PH 7.6 (Not Estab.)
[2017-12-09 16:00] VITALS: BP 119/38
[2017-12-09 19:55] VITALS: BP 137/47
[2017-12-10] VITALS (7 sets, daily range): BP systolic 98–150; BP diastolic 35–60
[2017-12-10 04:58] LABS: ABSOLUTE EOSINOPHILS 0.4 thou/uL (0.0-0.7); ABSOLUTE LYMPHOCYTES 1.8 thou/uL (0.8-5.3); ABSOLUTE MONOCYTES 0.5 thou/uL (0.0-1.2); ABSOLUTE NEUTROPHILS 1.5 thou/uL (1.6-8.1); BASOPHILS 0.4 %; EOSINOPHILS 9.9 %; HEMATOCRIT 22.2 % (37.0-47.0); LYMPHOCYTES 42.6 %; MCH 32.8 pg (26.0-34.0); MCHC 31.3 g/dL (28.0-37.0); MCV 104.8 fL (80.0-100.0); MONOCYTES 10.6 %; MPV 9.4 fl. (7.2-11.1); NUCLEATED RBCS 0 /100WBC; PLATELET COUNT* 92 thou/uL (150-400); POLYS 36.5 %; RBC 2.12 mil/uL (4.20-5.00); RDW-CV 18.4 % (10.5-14.5); WBC 4.2 thou/uL (4.0-11.0)
[2017-12-10 05:13] LABS: ALBUMIN 2.5 g/dL (3.4-5.0); CALCIUM 7.5 mg/dL (8.5-10.1); CREATININE 3.3 mg/dL (0.6-1.3); POTASSIUM 5.6 mmol/L (3.5-5.1); TOTAL BILIRUBIN 0.2 mg/dL (<0.1-1.0); TOTAL PROTEIN 5.1 g/dL (6.4-8.2)
[2017-12-10 05:47] LABS: HEMOGLOBIN 6.9 gm/dL (12.0-15.0)
[2017-12-10 09:45] LABS: HEMATOCRIT 24.6 % (37.0-47.0); HEMOGLOBIN 7.6 gm/dL (12.0-15.0); MCH 32.5 pg (26.0-34.0); MCHC 30.9 g/dL (28.0-37.0); MCV 105.3 fL (80.0-100.0); MPV 9.4 fl. (7.2-11.1); RBC 2.33 mil/uL (4.20-5.00); RDW-CV 18.5 % (10.5-14.5)
[2017-12-10 15:53] LABS: SOURCE THORACENTESIS
[2017-12-11] VITALS: BP 128/44
[2017-12-11 04:00] VITALS: BP 112/49
[2017-12-11 04:24] LABS: ABSOLUTE EOSINOPHILS 0.4 thou/uL (0.0-0.7); ABSOLUTE LYMPHOCYTES 1.6 thou/uL (0.8-5.3); ABSOLUTE MONOCYTES 0.4 thou/uL (0.0-1.2); ABSOLUTE NEUTROPHILS 1.7 thou/uL (1.6-8.1); BASOPHILS 0.4 %; HEMATOCRIT 24.9 % (37.0-47.0); HEMOGLOBIN 8.1 gm/dL (12.0-15.0); LYMPHOCYTES 38.8 %; MCH 32.8 pg (26.0-34.0); MCHC 32.4 g/dL (28.0-37.0); MCV 101.1 fL (80.0-100.0); MONOCYTES 9.7 %; NUCLEATED RBCS 0 /100WBC; PLATELET COUNT* 89 thou/uL (150-400); POLYS 41.1 %; RBC 2.46 mil/uL (4.20-5.00); WBC 4.1 thou/uL (4.0-11.0)
[2017-12-11 04:26] LABS: % SATURATION 34 % (20-39); IRON 75 ug/dL (50-175); PREALBUMIN 16.9 mg/dL (18.0-35.7)
[2017-12-11 04:47] LABS: ALBUMIN 2.4 g/dL (3.4-5.0); CALCIUM 7.8 mg/dL (8.5-10.1); CREATININE 3.1 mg/dL (0.6-1.3); TOTAL BILIRUBIN 0.3 mg/dL (<0.1-1.0); TOTAL PROTEIN 5.2 g/dL (6.4-8.2)
[2017-12-11 08:00] VITALS: BP 120/42
[2017-12-11 11:56] VITALS: BP 126/49
[2017-12-11 15:45] VITALS: BP 97/61
[2017-12-11 19:50] VITALS: BP 150/38
[2017-12-12 00:41] VITALS: BP 180/63
[2017-12-12 01:00] VITALS: BP 135/62
[2017-12-12 04:02] LABS: HEMATOCRIT 25.7 % (37.0-47.0); HEMOGLOBIN 8.4 gm/dL (12.0-15.0); MCH 33.2 pg (26.0-34.0); MCHC 32.8 g/dL (28.0-37.0); MCV 101.3 fL (80.0-100.0); MPV 8.3 fl. (7.2-11.1); NUCLEATED RBCS 0 /100WBC; PLATELET COUNT* 91 thou/uL (150-400); RBC 2.54 mil/uL (4.20-5.00); RDW-CV 18.8 % (10.5-14.5); WBC 4.2 thou/uL (4.0-11.0)
[2017-12-12 04:42] LABS: ALBUMIN 2.4 g/dL (3.4-5.0); CALCIUM 8.1 mg/dL (8.5-10.1); CREATININE 2.7 mg/dL (0.6-1.3); POTASSIUM 4.6 mmol/L (3.5-5.1); TOTAL BILIRUBIN 0.3 mg/dL (<0.1-1.0); TOTAL PROTEIN 5.3 g/dL (6.4-8.2)
[2017-12-12 05:44] LABS: ABSOLUTE EOSINOPHILS 0.4 thou/uL (0.0-0.7); ABSOLUTE LYMPHOCYTES 1.4 thou/uL (0.8-5.3); ABSOLUTE MONOCYTES 0.1 thou/uL (0.0-1.2); ABSOLUTE NEUTROPHILS 2.3 thou/uL (1.6-8.1)
[2017-12-12 05:45] LABS: ANISOCYTOSIS 1+; OVALOCYTES 1+; PLATELET ESTIMATE DECREASED; POIKILOCYTOSIS 1+
[2017-12-12 07:35] VITALS: BP 150/52
[2017-12-12 12:26] VITALS: BP 133/63
[2017-12-12 14:00] VITALS: BP 133/63
[2017-12-12] MEDS ORDERED: SODIUM BICARBO650 M3 PO (14:11)
--- NOTE | 2017-12-14 11:36 | CON ---
[address] [address] CONSULTATION Name: ETIENNE SPARKS Mathew Room: [address] IN [facility]#: [id number] Admission: 12/07/17 Attend Phys: Bassam Noe MD Discharge: 12/12/17 Date of : 34 Report #: [id number] THIS REPORT FOR: //name// CC: Bassam Carter DATE OF SERVICE: 12/08/2017 REQUESTING PHYSICIAN: Bassam Noe M.D. REASON FOR CONSULTATION: Acute kidney injury, chronic kidney disease stage 4, pancytopenia. HISTORY OF PRESENT ILLNESS: The patient is a very pleasant 87-year-old female with medical history significant for idiopathic liver cirrhosis, history of chronic kidney disease stage 4, frequent admissions to the hospital due to inability to take care of herself and getting weaker. She presented on 12/07/2017 with dyspnea, was transferred here from the senior living. Her chest x-ray revealed some bilateral pleural effusions, some atelectasis, cirrhotic liver which was revealed on CT of abdomen and pelvis. The patient was admitted with severe metabolic acidosis likely due to acute kidney injury and was given some fluids. FAMILY HISTORY: Noncontributory. SOCIAL HISTORY: senior care resident. MEDICAL HISTORY: As I mentioned earlier. REVIEW OF SYSTEMS: Positive for weakness, diarrhea, poor memory, intermittent confusion. PHYSICAL EXAMINATION: GENERAL: She is awake, alert. VITAL SIGNS: Blood pressure is normal now. ____ reviewed. HEENT: Pupils are round. NECK: Supple. LUNGS: Decreased breath sounds at both bases. CARDIOVASCULAR: Regular rate. ABDOMEN: Soft. EXTREMITIES: Lower extremities with some edema. LABORATORY DATA: Report revealed serum sodium 142, potassium 5.3, chloride 118, carbon dioxide 11, BUN 56, and creatinine 3.5, down from 3.9 yesterday. ASSESSMENT: The patient is an 87-year-old female [place] [address] CONSULTATION Name: ETIENNE SPARKS Mathew Room: [address]#: [id number] Admission: 12/07/17 Attend Phys: Bassam Noe MD Discharge: 12/12/17 Date of : 34 Report #: [id number] chronic kidney disease stage 4, admitted with acute kidney injury, severe metabolic acidosis. Started on bicarbonate drip. Subjectively, she feels a little better. Overall, her prognosis is poor. She was just discharged from the hospital months ago. She again has progressive liver damage and advanced kidney disease. Discussed ____ in detail with the patient's daughter and with Dr. Noe. Overall, I think hospice care will be appropriate, but we will treat her symptomatically. The patient is not a dialysis candidate. Thank you very much. <ELECTRONICALLY SIGNED> By: Abraham Gudino MD 12/14/17 1136 1152 [id number] telma Muse
== END 2017-12-12 16:52 | DRG 441 ==
LOC: M.ERS 10:50 → M.3W 13:29 → M.TBA-ER 13:29 → M.3W 17:43
PROVIDERS: Family Medicine; Internal Medicine; Internal Medicine Nephrology; ADMIT Internal Medicine
PROC: 0W9B3ZZ Drainage of Left Pleural Cavity, Percutaneous Approach (ICD-10-PCS; principal; 2017-12-08)
PROC: 30233N1 Transfusion of Nonautologous Red Blood Cells into Peripheral Vein, Percutaneous Approach (ICD-10-PCS; 2017-12-10)
DX: K76.7 Hepatorenal syndrome (principal); N17.0 Acute kidney failure with tubular necrosis; G93.40 Encephalopathy, unspecified; J96.20 Acute and chronic respiratory failure, unspecified whether with hypoxia or hypercapnia; E87.2 Acidosis; J90 Pleural effusion, not elsewhere classified; E87.0 Hyperosmolality and hypernatremia; I50.32 Chronic diastolic (congestive) heart failure; I13.0 Hypertensive heart and chronic kidney disease with heart failure and stage 1 through stage 4 chronic kidney disease, or unspecified chronic kidney disease; N18.4 Chronic kidney disease, stage 4 (severe); K74.60 Unspecified cirrhosis of liver; M81.0 Age-related osteoporosis without current pathological fracture; F32.9 Major depressive disorder, single episode, unspecified; Z96.641 Presence of right artificial hip joint; H91.90 Unspecified hearing loss, unspecified ear; E87.5 Hyperkalemia; D63.8 Anemia in other chronic diseases classified elsewhere; T50.8X5A Adverse effect of diagnostic agents, initial encounter; G47.00 Insomnia, unspecified; I49.5 Sick sinus syndrome; Z87.81 Personal history of (healed) traumatic fracture; Z86.718 Personal history of other venous thrombosis and embolism; Z95.0 Presence of cardiac pacemaker; Z98.84 Bariatric surgery status; Z86.010 Personal history of colon polyps; Z88.8 Allergy status to other drugs, medicaments and biological substances; Z88.6 Allergy status to analgesic agent; Z91.041 Radiographic dye allergy status; Z91.013 Allergy to seafood; Z79.82 Long term (current) use of aspirin; Z79.899 Other long term (current) drug therapy